=== PATIENT | female | born 1990 | race American Indian/Alaskan Native ===

== ENCOUNTER 2019-06-01 16:49 | Emergency (ER) | payer BC, OTHER ==
--- NOTE | 2019-06-01 20:36 | Event Note ---
ED Screening Note Date of service: 06/01/19 Time: 20:30 ED Screening Note: 28 y o female [employer] employee presents with lower back muscle spasm that is worsening x 5 days pt states no relief with otc meds, wasnt able to go in to work due to worsening pain, no ua sx This initial assessment/diagnostic orders/clinical plan/treatment(s) is/are subject to change based on patients health status, clinical progression and re- assessment by fellow clinical providers in the ED. Further treatment and workup at subsequent clinical providers discretion. Patient/guardian urged not to elope from the ED as their condition may be serious if not clinically assessed and managed. Initial orders include: acc eval
[2019-06-01] MEDS ORDERED: ACETAMINOPHEN 500 MG TAB PO ONE (22:35)
[2019-06-01] MEDS ORDERED: IBUPROFEN 600 MG TAB PO ONE (22:35)
[2019-06-02 00:29] LABS: Bacteria,Urine 1+ /HPF (Negative); Bilirubin,Urine NEG (Negative); Blood,Urine NEG (Negative); Color,Urine Yellow (Yellow); Mucus,Urine 3+ /HPF; Urobilinogen,Urine < 2.0 mg/dL (<2.0)
--- NOTE | 2019-06-02 01:58 | XRay Report ---
LUMBAR SPINE 2 VIEWS INDICATION / CLINICAL INFORMATION: Pain - Injury. COMPARISON: None available. FINDINGS: No significant degenerative change. No fracture, subluxation or other acute abnormality Signer Name: Kevin Groves MD Signed: 06/02/2019 1:53 AM Workstation Name: [id number]
--- NOTE | 2019-06-02 02:40 | Emergency Department Report ---
ED Back Pain/Injury HPI - General Chief Complaint: Back Pain/Injury Stated Complaint: BACK/ABD PAIN Source: patient Limitations: No Limitations - History of Present Illness Initial Comments: Patient is a nulliparous 28-year-old Afro-F[place]ian female with no past medical history who presents to the ED with acute onset persistent severe low back pain after heavy lifting 4 days ago. Patient states that he last 2 days she has no been able to perform any activities range of motion because of severe low back pain. Patient denies dysuria, urinary frequency and urgency, hematuria, abdominal pain, traumatic injury, fall, numbness and tingling or weakness of lower extremities bilaterally, urinary or bowel incontinence, saddle paresthesia, dizziness, chest pain or shortness of breath. MD Complaint: back pain -: Sudden, days(s) (4) Similar Symptoms Previously: Yes Place: home Radiation: none Severity: severe Severity scale (0 -10): 8 Quality: sharp, aching Consistency: constant Improves With: none Worsens With: movement, walking Context: while lifting, turning/twisting, bending Associated Symptoms: denies other symptoms. denies: confusion, weakness, chest pain, numbness, difficulty walking, cough, difficulty urinating, diaphoresis, incontinence, fever/chills, constipation, headaches, abdominal pain, loss of appetite, malaise, nausea/vomiting, rash, seizure, shortness of breath, syncope - Related Data Previous Rx's Medication Instructions Recorded Last Taken Type Cyclobenzaprine [Flexeril] 10 mg PO TID PRN #15 tablet 03/20/16 Unknown Rx Ibuprofen [Motrin] 800 mg PO Q8HR PRN #15 tablet 03/20/16 Unknown Rx Ibuprofen [Motrin] 800 mg PO Q8HR PRN #24 tablet 06/02/19 Unknown Rx methOCARBAMOL [Robaxin TAB] 750 mg PO Q8H PRN #21 tablet 06/02/19 Unknown Rx traMADoL [Ultram] 50 mg PO Q6HR PRN #12 tablet 06/02/19 Unknown Rx Allergies Allergy/AdvReac Type Severity Reaction Status Date / Time mushroom Allergy Swelling Verified 03/20/16 08:38 ED Review of Systems ROS: Stated complaint: BACK/ABD PAIN Other details as noted in HPI Constitutional: denies: chills, fever Eyes: denies: eye pain, eye discharge, vision change ENT: denies: ear pain, throat pain Respiratory: denies: cough, shortness of breath, wheezing Cardiovascular: denies: chest pain, palpitations Endocrine: no symptoms reported Gastrointestinal: denies: abdominal pain, nausea, diarrhea Genitourinary: denies: urgency, dysuria, discharge Musculoskeletal: back pain (lower back pain), arthralgia, myalgia. denies: joint swelling Skin: denies: rash, lesions Neurological: denies: headache, weakness, paresthesias Psychiatric: denies: anxiety, depression Hematological/Lymphatic: denies: easy bleeding, easy bruising ED Past Medical Hx - Past Medical History Previous Medical History?: No - Surgical History Past Surgical History?: No - Social History Smoking Status: Never Smoker Substance Use Type: None - Medications Home Medications: Home Medications Medication Instructions Recorded Confirmed Last Taken Type Cyclobenzaprine [Flexeril] 10 mg PO TID PRN #15 tablet 03/20/16 Unknown Rx Ibuprofen [Motrin] 800 mg PO Q8HR PRN #15 tablet 03/20/16 Unknown Rx Ibuprofen [Motrin] 800 mg PO Q8HR PRN #24 tablet 06/02/19 Unknown Rx methOCARBAMOL [Robaxin TAB] 750 mg PO Q8H PRN #21 tablet 06/02/19 Unknown Rx traMADoL [Ultram] 50 mg PO Q6HR PRN #12 tablet 06/02/19 Unknown Rx ED Physical Exam - General Limitations: No Limitations General appearance: alert, in no apparent distress - Head Head exam: Present: atraumatic, normocephalic, normal inspection - Eye Eye exam: Present: normal appearance, PERRL, EOMI Pupils: Present: normal accommodation - ENT ENT exam: Present: normal exam, normal orophraynx, mucous membranes moist, TM's normal bilaterally, normal external ear exam - Neck Neck exam: Present: normal inspection, full ROM. Absent: tenderness, lymphadenopathy - Respiratory Respiratory exam: Present: normal lung sounds bilaterally. Absent: respiratory distress, wheezes, rhonchi, chest wall tenderness, accessory muscle use, decreased breath sounds, prolonged expiratory - Cardiovascular Cardiovascular Exam: Present: regular rate, normal rhythm, normal heart sounds. Absent: systolic murmur, diastolic murmur, rubs, gallop - GI/Abdominal GI/Abdominal exam: Present: soft, normal bowel sounds. Absent: tenderness, guarding, rebound, hyperactive bowel sounds, hypoactive bowel sounds - Extremities Exam Extremities exam: Present: normal inspection, full ROM. Absent: tenderness, normal capillary refill, pedal edema, joint swelling - Back Exam Back exam: Present: normal inspection, tenderness (palpable lumbosacral paraspinal musculoskeletal tenderness), muscle spasm, paraspinal tenderness. Absent: full ROM (Limited range of motion due to pain) - Neurological Exam Neurological exam: Present: alert, oriented X3, CN II-XII intact, normal gait, reflexes normal - Psychiatric Psychiatric exam: Present: normal affect, normal mood - Skin Skin exam: Present: warm, dry, intact, normal color. Absent: rash ED Course Vital Signs 06/01/19 06/01/19 17:24 23:21 Temperature 98.3 F Pulse Rate 92 H Respiratory 16 20 Rate Blood Pressure 193/107 O2 Sat by Pulse 97 Oximetry ED Medical Decision Making - Radiology Data Radiology results: report reviewed, image reviewed L-spine x-ray shows no acute fractures or subluxations. - Medical Decision Making This is a 28-year-old female who presented to the ED with acute onset persistent severe low back pain after heavy lifting 4 days ago. In the ED, patient is alert and oriented 3 and is not in distress with normal vital signs. Patient however appears to be in significant pain. Patient was treated for pain in the ED and the L-spine x-ray shows no acute fractures or subluxations. On reevaluation, patient's pain is well-controlled with medications. Patient's symptoms are likely due to musculoskeletal spasm or muscle strain from heavy lifting. Patient was discharged home on pain medications and muscle relaxants and was advised to follow-up with her primary care physician in 7-10 days for reevaluation or return to the ED immediately if symptoms get worse. - Differential Diagnosis Muscle spasm; Muscle strain; low back pain Critical care attestation.: If time is entered above; I have spent that time in minutes in the direct care of this critically ill patient, excluding procedure time. ED Disposition Clinical Impression: Spasm of muscle of lower back, Strain of muscle, fascia and tendon of lower back, initial encounter Acute low back pain Qualifiers: Back pain laterality: unspecified Sciatica presence: without sciatica Qualified Code(s): M54.5 - Low back pain Disposition: TO HOME OR SELFCARE Is pt being admited?: No Does the pt Need Aspirin: No Condition: Stable Instructions: Muscle Strain (ED), Muscle Spasm (ED), Acute Low Back Pain (ED) Additional Instructions: Take medication with food, drink plenty of fluids and follow-up with your primary care physician in 7-10 days for reevaluation. Return to the ED immediately if symptoms get worse. Prescriptions: Ibuprofen [Motrin] 800 mg PO Q8HR PRN #24 tablet PRN Reason: Pain , Severe (7-10) methOCARBAMOL [Robaxin TAB] 750 mg PO Q8H PRN #21 tablet PRN Reason: Muscle Spasm traMADoL [Ultram] 50 mg PO Q6HR PRN #12 tablet PRN Reason: Pain Referrals: [facility] [Outside] - 3-5 Days Forms: Work/School Release Form(ED) Time of Disposition: 02:41 Print Language: LAO
[2019-06-02 06:42] VITALS: BP 132/78
== END 2019-06-02 03:30 | disposition home or self-care (01) ==
LOC: ED 16:49
DX: S39.012A Strain of muscle, fascia and tendon of lower back, initial encounter (principal); M62.830 Muscle spasm of back; Z91.018 Allergy to other foods; Z79.899 Other long term (current) drug therapy; X50.0XXA Overexertion from strenuous movement or load, initial encounter; Y93.89 Activity, other specified; Y92.008 Other place in unspecified non-institutional (private) residence as the place of occurrence of the external cause; Y99.8 Other external cause status
CPT/HCPCS: 36415; 72100; 81001; 84703

== ENCOUNTER 2019-06-27 08:50 | Outpatient (CLI) | payer BC ==
[2019-06-27 11:43] LABS: Hepatitis C Virus Antibody Non-Reactive (NonReactive)
== END 2019-06-27 08:51 | disposition home or self-care (01) ==
LOC: LAB 08:50
PROVIDERS: ATTEND Obstetrics & Gynecology
DX: Z11.3 Encounter for screening for infections with a predominantly sexual mode of transmission (principal)
CPT/HCPCS: 36415; 86592; 86689; 86706; 86803

== ENCOUNTER 2019-11-22 12:26 | Day surgery (SDC) | payer BC ==
[2019-11-21 08:48] LABS: Hematocrit 35.7 % (30.3-42.9); Hemoglobin 12.2 gm/dl (10.1-14.3); Mean Corpuscular HGB Conc 34 % (30-34); Mean Corpuscular Volume 83 fl (79-97); Platelet Count 332 K/mm3 (140-440); Red Blood Count 4.28 M/mm3 (3.65-5.03); Red Cell Distribution Width 15.4 % (13.2-15.2)
--- NOTE | 2019-11-21 19:10 | History and Physical Report ---
History of Present Illness Date of examination: 11/16/19 Chief complaint: Excessive and frequent menstruation with irregular cycle and Endometrial polyp History of present illness: Past History : 0 [employer] History Operations: Negative Past Surgical History Abnormal PAP: negative Infection History HIV Risk Eval: no Hx of STD: None Active Medications (reviewed today): SYMONE 0.35 MG ORAL TABLET (NORETHINDRONE) 1 tab po daily AMLODIPINE BESYLATE TABLET (AMLODIPINE BESYLATE TABS) TRAMADOL HCL 50 MG ORAL TABLET (TRAMADOL HCL) 1 po q6hrs prn ROBAXIN-750 TABLET (METHOCARBAMOL TABS) IBUPROFEN 800 MG ORAL TABLET (IBUPROFEN) 1 po (PRN) Current Allergies (reviewed today): * MUSHROOMS (Critical) Past Medical History: Reviewed history from 10/19/2019 and no changes required: Back injury Hypertension Past Surgical History: Reviewed history from 06/10/2019 and no changes required: Negative Past Surgical History Family History Summary: Reviewed history Last on 10/19/2019 and no changes required:11/21/2019 MGM - Has Family History Breast Cancer - - Entered On: 06/14/2019 Other Family Member - Has No Family History of Uterine Cancer - Entered On: 06/14/2019 Other Family Member - Has No Family History of Small Bowel Cancer - Entered On: 06/14/2019 Other Family Member - Has No Family History of Stomach Cancer - Entered On: Other Family Member - Has No Family History of Pancreatic Cancer - Entered On: 06/14/2019 Other Family Member - Has No Family History of Ovarvian Cancer - Entered On: 06/14/2019 Other Family Member - Has No Family History of Kidney/Urinary Tract Cancer - Entered On: 06/14/2019 Other Family Member - Has No Family History of Spontaneous DVT-PE - Entered On: 06/14/2019 Other Family Member - Has No Family History of Colon Cancer - Entered On: 06/14/2019 Other Family Member - Has No Family History of Brain Cancer - Entered On: 06/14/2019 Other Family Member - Has No Family History of Biliary Tract Cancer - Entered On: 06/14/2019 Social History: Reviewed history from 06/10/2019 and no changes required: Patient is single Smoking History: Patient has never smoked. Risk Factors: Smoked Tobacco Use: Never smoker Smokeless Tobacco Use: Never Drug use: no HIV high-risk behavior: no Alcohol use: yes Exercise: no Seatbelt use: 100 % PAP Smear History: Date of Last PAP Smear: 06/10/2019 Previous Tobacco Use: Signed On 10/19/2019 Smoked Tobacco Use: Never smoker Smokeless Tobacco Use: Never Drug use: no HIV high-risk behavior: no Previous Alcohol Use: Signed On 10/19/2019 Alcohol use: yes Drinks per day: social Exercise: no Seatbelt use: 100 % PAP Smear History: Date of Last PAP Smear: 06/10/2019 Physical Exam Appearance: well developed, well nourished, no acute distress Other Exams Lungs: no rales, rhonchi, or wheezes Heart: S1, S2, no murmur, rub, or gallop Genitourinary Exam Uterus: deferred for EUA Impression & Recommendations: Problem # 1: Excessive and frequent menstruation with irregular cycle (ICD- 626.6) (ZFT66-S37.1) Her updated medication list for this problem includes: Symone 0.35 Mg Oral Tablet (Norethindrone) ..... 1 tab po daily Ibuprofen 800 Mg Oral Tablet (Ibuprofen) ..... 1 po (prn) Orders: Ofc Vst Est 18548 ([id number]) Problem # 2: Endometrial polyp (ICD-621.0) (IWS88-P36.0) Diagnosis explained to patient . Questions answered. Discussed with patient various medical and surgical therapies common for treatment: Hormonal/medical therapy,endometrial ablation or hysterectomy. She desires hysteroscopy D&C, she was informed her heavy, irregular bleeding may persist or recur after the procedure. Patient voiced understanding and agrees with plan of care Consent reviewed and signed . Possible laparoscopy or laparotomy explained to patient. The risks and alternatives for this surgery were reviewed with the patient. She was informed of possible bleeding, infection, injury to bowel, bladder, ureters or other adjacent organs. The patient was instructed/informed the following: The normal length of hospital stay for this procedure. Nothing to eat or drink after midnight the evening prior to surgery. Pre-op instruction sheets given. Wound care instructions given. Infection precautions reviewed, patient to call for any signs or symptoms of infection. The usual discomforts associated with this procedure were detailed. Proper use of pain medicines was reviewed. Patient was given ample opportunity to have all her questions answered before signing informed consent. H&P dictated. Her updated medication list for this problem includes: Symone 0.35 Mg Oral Tablet (Norethindrone) ..... 1 tab po daily Tramadol Hcl 50 Mg Oral Tablet (Tramadol hcl) ..... 1 po q6hrs prn Ibuprofen 800 Mg Oral Tablet (Ibuprofen) ..... 1 po (prn) Medications and Allergies Allergies Allergy/AdvReac Type Severity Reaction Status Date / Time mushroom Allergy Hives Verified 11/10/19 15:10 Home Medications Medication Instructions Recorded Confirmed Last Taken Type Norethindrone [Jencycla] 0.35 mg PO DAILY 11/21/19 11/21/19 11/20/19 History amLODIPine 5 mg PO DAILY PRN 11/21/19 11/21/19 Unknown History methOCARBAMOL [Robaxin TAB] 750 mg PO Q8H PRN 11/21/19 11/21/19 Unknown History Active Meds: Active Medications Lactated Ringer's (Lactated Ringers) 1,000 mls @ 100 mls/hr IV DIRECT MARI Stop: 11/22/19 23:59 Cefazolin Sodium (Ancef/Sterile Water 2 Gm/20 Ml) 2 gm in 20 mls @ 80 mls/hr IV PREOP NR; Protocol Midazolam HCl (Versed) 2 mg IV PREOP NR Stop: 11/21/22 23:59 Exam Vital Signs Temp Pulse Resp BP Pulse Ox 98.4 F 90 20 179/110 99 11/21/19 08:10 11/21/19 08:10 11/21/19 08:10 11/21/19 08:10 11/21/19 08:10 Results - Labs 11/21/19 08:20 Abnormal lab results 11/21/19 Range/Units 08:20 RDW 15.4 H (13.2-15.2) % Assessment and Plan - Patient Problems (1) Excessive and frequent menstruation with irregular cycle Status: Acute (2) Endometrium, polyp Status: Acute
--- NOTE | 2019-11-22 07:54 | Anesthesia Consultation ---
Anesthesia Consult and Med Hx Date of service: 11/22/19 - Airway Anesthetic Teeth Evaluation: Good ROM Head & Neck: Adequate Mental/Hyoid Distance: Adequate Mallampati Class: Class III Intubation Access Assessment: Possibly Difficult - Pulmonary Exam CTA: Yes - Cardiac Exam Cardiac Exam: RRR - Pre-Operative Health Status ASA Pre-Surgery Classification: ASA2 Proposed Anesthetic Plan: General - Pulmonary Hx Smoking: No Hx Respiratory Symptoms: No - Cardiovascular System Hx Hypertension: Yes (took amlodipine this morning) - Central Nervous System CVA: No Hx Psychiatric Problems: Yes (anxiety) - Gastrointestinal Hx Gastroesophageal Reflux Disease: No - Endocrine Hx Renal Disease: No Hx Liver Disease: No Hx Insulin Dependent Diabetes: No Hx Non-Insulin Dependent Diabetes: No Hx Thyroid Disease: No - Other Systems Hx Obesity: Yes (BMI 36)
--- NOTE | 2019-11-22 07:55 | Anesthesia Day of Surgery ---
Anesthesia Day of Surgery - Day of Surgery Patient Examined: Yes Patient H&P Reviewed: Yes Patient is NPO: Yes
--- NOTE | 2019-11-22 10:00 | Operative Report ---
Operative Report Operative Report: Date: 11/22/2019 PREOPERATIVE DIAGNOSES: 1. Menometrorrhagia 2. Endometrial polyps POSTOPERATIVE DIAGNOSES: 1. Menometrorrhagia 2. Endometrial polyps PROCEDURE PERFORMED: 1. Cervical dilation 2. Uterine curettage 3. Hysteroscopic resection of endometrial polyps using the MyoSure device ANESTHESIA: General ESTIMATED BLOOD LOSS: Less than minimal cc. INDICATIONS: This is a 29-year-old female that presents abbie metrorrhagia and endometrial polyps. PROCEDURE: The patient was seen in the preoperative suite. Expected procedure and postoperative course discussed with her. She was taken to the operative suite where general anesthesia was performed. She was placed in a dorsal lithotomy position. . A bimanual exam was done, the uterus was found to be difficult to palpate due to body habitus. She was prepped and draped in the normal sterile fashion. Timeout was performed. A nonlatex Arrieta catheter was introduced into her bladder. Clear yellow urine was noted to drain to the Arrieta catheter. The cervix and vagina were grossly normal with no obvious masses or deformities. A bivalve operative speculum was placed in the vagina and the anterior lip of the cervix was grasped with the single-tooth tenaculum. The uterus was sounded to ~8 cm. The cervix was progressively dilated to allow the operative hysteroscope. Under direct visualization, the ostia were within normal limits. The endometrial lining appeared thickened, however, there was no obvious evidence of malignancy. The hysteroscope was removed and a small sharp curette was placed intrauterine very carefully using anterior wall for guidance. Endometrial curettings were obtained. . The endometrial sampling was placed on Telfa pad and sent to Pathology for evaluation, permanent. The MyoSure device was placed into the cavity of the uterus and resection of the polyps was performed. The hysteroscope was introduced again, no evidence of perforation was noted. At this point procedure was ended. The single-tooth tenaculum and speculum were removed. The cervix was found to be hemostatic. Counts were correct. Patient was taken to the PACU stable. The Arrieta catheter was removed. Approximately 200 mL's of clear yellow urine within the Arrieta bag. Distention fluid: Normal saline Deficit: 50 mL
--- NOTE | 2019-11-22 10:07 | Discharge Summary ---
Providers - Providers Date of discharge: 11/22/19 Attending physician: BENITO JAMES Primary care physician: INES GU Hospitalization Condition: Good Procedures: hysteroscopic polypectomy Hospital course: unremarkable Disposition: DC-01 TO HOME OR SELFCARE - Discharge Diagnoses (1) Excessive and frequent menstruation with irregular cycle Status: Resolved (2) Endometrium, polyp Status: Resolved Core Measure Documentation - Palliative Care Palliative Care/ Comfort Measures: Not Applicable - Core Measures Any of the following diagnoses?: none Exam - Constitutional Vitals: Temp Pulse Resp BP Pulse Ox 98.0 F 79 16 140/81 96 11/22/19 10:00 11/22/19 10:00 11/22/19 10:00 11/22/19 10:00 11/22/19 10:00 General appearance: Present: no acute distress - Respiratory Respiratory effort: normal - Cardiovascular Rhythm: regular - Psychiatric Psychiatric: appropriate mood/affect, intact judgment & insight, memory intact, cooperative Plan Activity: other (no sex, no driving today) Weight Bearing Status: Full Weight Bearing Diet: regular (eat small frequent meals today) Special Instructions: no heavy lifting (greater than 25lb) Follow up with: INES GU MD [Primary Care Provider] - 7 Days BENITO JAMES MD [Staff Physician] - (as scheduled) Prescriptions: Ibuprofen [Motrin 800 MG tab] 800 mg PO TID PRN #30 tablet PRN Reason: Pain
[2019-11-22 10:43] VITALS: BP 145/83
[~2019-11-22 12:26] MED LIST: KETOROLAC 30 MG/1 ML INJ IV PRN; KETOROLAC 30 MG/1 ML INJ ONE; LACTATED RINGERS 1,000 ML IV SCH; LIDOCAINE MPF (2%) 20 MG/1 ML VIAL 5 ML ONE; MIDAZOLAM 2 MG/2 ML INJ IV NR; ONDANSETRON 4 MG/2 ML INJ IV PRN; ONDANSETRON 4 MG/2 ML INJ ONE; SODIUM CHLORIDE 0.9% IRRIG SOLN 3000 ML IR ONE; ceFAZolin/Water 2 GM/20 ML 2 GM/20 ML SYRINGE IV NR; dexAMETHasone 20 MG/5 ML VIAL ONE; fentaNYL 100 MCG/2 ML INJ IV PRN; fentaNYL 100 MCG/2 ML INJ ONE; propofoL 200 MG/20 ML VIAL IV ONE
--- NOTE | 2019-11-22 12:58 | Post Anesthesia Evaluation ---
- Post Anesthesia Evaluation Patient Participated: Yes Airway Patent: Yes Stable Respiratory Function: Yes Nausea/Vomiting: No Temp > 96.8F: Yes Pain Manageable: Yes Adequeate Hydration: Yes Anesthesia Complications: No
== END 2019-11-22 12:27 | disposition home or self-care (01) ==
LOC: OR 12:26
PROVIDERS: ATTEND Obstetrics & Gynecology
DX: N92.1 Excessive and frequent menstruation with irregular cycle (principal); N84.0 Polyp of corpus uteri; I10 Essential (primary) hypertension; E66.9 Obesity, unspecified; Z11.59 Encounter for screening for other viral diseases; Z91.040 Latex allergy status; Z79.899 Other long term (current) drug therapy; Z98.890 Other specified postprocedural states; Z68.36 Body mass index [BMI] 36.0-36.9, adult; Z88.8 Allergy status to other drugs, medicaments and biological substances
CPT/HCPCS: 36415; 58558; 81025; 85027; 88305; A4217; C1782; J0690; J1100; J1885; J2250; J2405; J2704; J3010; J7120; U0003

== ENCOUNTER 2020-01-24 11:50 | Emergency (ER) | payer BC ==
[2020-01-24 12:17] VITALS: BP 168/99
--- NOTE | 2020-01-24 13:09 | XRay Report ---
RIGHT FEMUR 4 VIEW(S) INDICATION / CLINICAL INFORMATION: r/o glass foreign body from wound COMPARISON: None available. FINDINGS: BONES / JOINT(S): No acute fracture or subluxation. No significant arthritis. Benign-appearing sclero tic lesion within the distal femoral metaphysis compatible with an enchondroma. SOFT TISSUES: No significant abnormality. No evidence of foreign body. ADDITIONAL FINDINGS: None. IMPRESSION: 1. No evidence of foreign body. 2. No acute osseous abnormality. 3. Sclerotic lesion in the distal femoral metaphysis is compatible with a benign enchondroma. Signer Name: Raji Caal MD Signed: 01/24/2020 1:05 PM Workstation Name: [id number]
--- NOTE | 2020-01-24 13:27 | Emergency Department Report ---
- General Chief Complaint: Wound/Laceration Stated Complaint: RIGHT THIGH CUT Source: patient Mode of arrival: Ambulatory Limitations: No Limitations - History of Present Illness Initial Comments: This is a very pleasant 29-year-old female presents emerged department chief complaint of a laceration to her right upper thigh on the lateral side that occurred 3 days ago. Patient reports she was cleaning a glass vase when it broke and accidentally cut her leg. She is concerned there may be a piece of glass in the wound. She reports her last tetanus shot is up-to-date. She denies any associated fever, chills, night sweats, headache, dizziness, blurry vision, nausea, vomiting, diarrhea, chest pain, shortness of breath. - Related Data Home Medications Medication Instructions Recorded Confirmed Last Taken Norethindrone [Jencycla] 0.35 mg PO DAILY 11/21/19 11/21/19 11/20/19 amLODIPine 5 mg PO DAILY PRN 11/21/19 11/22/19 11/22/19 06:00 methOCARBAMOL [Robaxin TAB] 750 mg PO Q8H PRN 11/21/19 11/21/19 Unknown Previous Rx's Medication Instructions Recorded Last Taken Type Ibuprofen [Motrin 800 MG tab] 800 mg PO TID PRN #30 tablet 11/22/19 Unknown Rx cephALEXin [Keflex] 500 mg PO Q6HR #40 capsule 01/24/20 Unknown Rx Allergies Allergy/AdvReac Type Severity Reaction Status Date / Time mushroom Allergy Hives Verified 11/10/19 15:10 latex AdvReac Rash Verified 11/22/19 07:37 ED Review of Systems ROS: Stated complaint: RIGHT THIGH CUT Other details as noted in HPI Comment: All other systems reviewed and negative Constitutional: denies: chills, fever Eyes: denies: eye pain, eye discharge, vision change ENT: denies: ear pain, throat pain Respiratory: denies: cough, shortness of breath, wheezing Cardiovascular: denies: chest pain, palpitations Endocrine: no symptoms reported Gastrointestinal: denies: abdominal pain, nausea, diarrhea Genitourinary: denies: urgency, dysuria, discharge Musculoskeletal: denies: back pain, joint swelling, arthralgia Skin: as per HPI, other (Wound). denies: rash, lesions Neurological: denies: headache, weakness, paresthesias Psychiatric: denies: anxiety, depression Hematological/Lymphatic: denies: easy bleeding, easy bruising ED Past Medical Hx - Past Medical History Hx Hypertension: Yes (Past hx) Additional medical history: anxiety - Surgical History Past Surgical History?: No - Social History Smoking Status: Never Smoker - Medications Home Medications: Home Medications Medication Instructions Recorded Confirmed Last Taken Type Norethindrone [Jencycla] 0.35 mg PO DAILY 11/21/19 11/21/19 11/20/19 History amLODIPine 5 mg PO DAILY PRN 11/21/19 11/22/19 11/22/19 06:00 History methOCARBAMOL [Robaxin TAB] 750 mg PO Q8H PRN 11/21/19 11/21/19 Unknown History Ibuprofen [Motrin 800 MG tab] 800 mg PO TID PRN #30 tablet 11/22/19 Unknown Rx cephALEXin [Keflex] 500 mg PO Q6HR #40 capsule 01/24/20 Unknown Rx ED Physical Exam - General Limitations: No Limitations General appearance: alert, in no apparent distress - Head Head exam: Present: atraumatic, normocephalic - Eye Eye exam: Present: normal appearance, PERRL, EOMI Pupils: Present: normal accommodation - ENT ENT exam: Present: normal exam, normal orophraynx, mucous membranes moist - Neck Neck exam: Present: normal inspection, full ROM. Absent: tenderness, meningismus - Respiratory Respiratory exam: Present: normal lung sounds bilaterally. Absent: respiratory distress, wheezes, rales, rhonchi, stridor - Cardiovascular Cardiovascular Exam: Present: regular rate, normal rhythm, normal heart sounds. Absent: systolic murmur, diastolic murmur, rubs, gallop - GI/Abdominal GI/Abdominal exam: Present: soft, normal bowel sounds. Absent: distended, tenderness, guarding, rebound, rigid - Extremities Exam Extremities exam: Present: normal inspection, full ROM, tenderness (Mild tenderness to the lateral right thigh with a 3 cm superficial laceration. No erythema, edema or drainage.) - Back Exam Back exam: Present: normal inspection, full ROM. Absent: tenderness, CVA tenderness (L) - Neurological Exam Neurological exam: Present: alert, oriented X3, normal gait - Psychiatric Psychiatric exam: Present: normal affect, normal mood - Skin Skin exam: Present: warm, dry, intact, normal color. Absent: rash ED Course Vital Signs 01/24/20 12:14 Temperature 98.2 F Pulse Rate 98 H Respiratory 18 Rate Blood Pressure 168/99 O2 Sat by Pulse 99 Oximetry ED Medical Decision Making - Radiology Data Radiology results: report reviewed XRay Report Signed Patient: FARRUKH CLANCY MR# : [id number] : 1990 Acct:[id number] Age/Sex: 29 / F ADM Date: 01/24/20 Loc: ED Attending Dr: Ordering Physician: JODY JOSÉ Date of Service: 01/24/20 Procedure(s): XR femur 2+V RT Accession Number(s): [id number] cc: JODY JOSÉ Fluoro Time In Minutes: RIGHT FEMUR 4 VIEW(S) INDICATION / CLINICAL INFORMATION: r/o glass foreign body from wound COMPARISON: None available. FINDINGS: BONES / JOINT(S): No acute fracture or subluxation. No significant arthritis. Benign-appearing sclerotic lesion within the distal femoral metaphysis compatible with an enchondroma. SOFT TISSUES: No significant abnormality. No evidence of foreign body. ADDITIONAL FINDINGS: None. IMPRESSION: 1. No evidence of foreign body. 2. No acute osseous abnormality. 3. Sclerotic lesion in the distal femoral metaphysis is compatible with a benign enchondroma. Signer Name: Jillian Caal MD Signed: 01/24/2020 1:05 PM Workstation Name: [id number] Transcribed By: Dictated By: JILLIAN CAAL Electronically Authenticated By: JILLIAN CAAL Signed Date/Time: 01/24/20 1305 - Medical Decision Making Patient nontoxic in no acute distress. X-ray does not show any appreciable foreign bodies. There was an incidental finding of a benign endochondroma. Patient denies any symptoms. Recommended outpatient orthopedic follow-up as needed. Patient had no clinical symptoms of infection but due to the laceration occurring 3 days ago and the symptoms we will treat her with Keflex and recommended warm compresses. - Differential Diagnosis laceration, abrasion, burn Critical care attestation.: If time is entered above; I have spent that time in minutes in the direct care of this critically ill patient, excluding procedure time. ED Disposition Clinical Impression: Laceration of leg Qualifiers: Encounter type: initial encounter Laterality: right Qualified Code(s): S81.811A - Laceration without foreign body, right lower leg, initial encounter Disposition: - TO HOME OR SELFCARE Is pt being admited?: No Condition: Stable Instructions: Laceration (ED) Prescriptions: cephALEXin [Keflex] 500 mg PO Q6HR #40 capsule Referrals: INES GU MD [Primary Care Provider] - 3-5 Days Time of Disposition: 13:26
== END 2020-01-24 13:32 | disposition home or self-care (01) ==
LOC: ED 11:50
DX: S81.811A Laceration without foreign body, right lower leg, initial encounter (principal); I10 Essential (primary) hypertension; F41.9 Anxiety disorder, unspecified; Z91.040 Latex allergy status; Z91.018 Allergy to other foods; Z79.899 Other long term (current) drug therapy; W25.XXXA Contact with sharp glass, initial encounter; Y93.E9 Activity, other interior property and clothing maintenance; Y92.89 Other specified places as the place of occurrence of the external cause; Y99.8 Other external cause status
CPT/HCPCS: 99283

== ENCOUNTER 2020-04-18 08:15 | Emergency (ER) | payer BC ==
[2020-04-18 08:43] VITALS: BP 143/80
[2020-04-18] MEDS ORDERED: BENZONATATE 100 MG CAP PO ONE (12:26)
[2020-04-18 12:43] LABS: Basophils % (Auto) 0.3 % (0.0-1.8); Eosinophils % (Auto) 0.1 % (0.0-4.3); Hematocrit 36.6 % (30.3-42.9); Lymphocytes # (Auto) 1.3 K/mm3 (1.2-5.4); Lymphocytes % (Auto) 32.8 % (13.4-35.0); Mean Corpuscular HGB Conc 33 % (30-34); Mean Corpuscular Volume 82 fl (79-97); Monocytes # (Auto) 0.4 K/mm3 (0.0-0.8); Platelet Count 201 K/mm3 (140-440); Red Blood Count 4.47 M/mm3 (3.65-5.03); Red Cell Distribution Width 14.6 % (13.2-15.2)
[2020-04-18 12:51] LABS: Alanine Aminotransferase 25 units/L (7-56); Albumin 3.7 g/dL (3.9-5); BUN/Creatinine Ratio 8; Blood Urea Nitrogen 5 mg/dL (7-17); Calcium 9.1 mg/dL (8.4-10.2); Hemolysis Index 16
--- NOTE | 2020-04-18 14:37 | XRay Report ---
CHEST 2 VIEWS INDICATION / CLINICAL INFORMATION: CHEST PAIN. COMPARISON: 09/21/2019 FINDINGS: SUPPORT DEVICES: None. HEART / MEDIASTINUM: Cardiac silhouette is upper limits of normal in size LUNGS / PLEURA: There are patchy airspace opacities in the mid and lower lung zones No pneumothorax. ADDITIONAL FINDINGS: No significant additional findings. IMPRESSION: 1. There are patchy airspace opacities in the mid and lower lung zones which could represent atypical pneumonia or edema. Signer Name: Carlos Carlos MD Signed: 04/18/2020 2:36 PM Workstation Name: [id number]
[2020-04-18 14:45] LABS: INR 1.01 (0.87-1.13)
[2020-04-18 14:46] LABS: Partial Thromboplastin Time 31.7 Sec. (24.2-36.6)
[2020-04-18] MEDS ORDERED: cefTRIAXone/NS 1 GM/50 ML 1 GM/50 ML BAG IV ONE (14:46)
[2020-04-18] MEDS ORDERED: AZITHROMYCIN 250 MG TAB PO ONE (14:47)
--- NOTE | 2020-04-18 14:52 | Emergency Department Report ---
ED Chest Pain HPI - General Chief Complaint: Chest Pain Stated Complaint: CHEST PAIN AND SOB Time Seen by Provider: 04/18/20 11:54 Source: patient Mode of arrival: Ambulatory Limitations: No Limitations - History of Present Illness Initial Comments: This is a 29-year-old female nontoxic, well nourished in appearance, no acute signs of distress presents to the ED with c/o of productive cough, subjective fever, chills, body aches, rhinorrhea, chest pains, SOB, nasal congestion x1 week. Patient describes productive cough as yellow mucus production. Patient denies any sick contacts. Patient stated has chest pains only when coughing, otherwise denies any chest pains. Patient denies any recent travels, long car, recent hospital stays. Patient denies any calf pain or calf tenderness. Patient denies pleuritic chest pain. Patient denies any chest pain, nausea, vomiting, hemoptysis, numbness, tingling, headache or stiff neck. MD Complaint: chest pain, other (URI symptoms) -: week(s) Onset: other (cough) Pain Location: substernal Pain Radiation: none Severity scale (0 -10): 0 Quality: aching Consistency: intermittent Improves With: rest Worsens With: other (coughing) re: denies: nausea, vomting, diaphoresis, dyspnea, sense of impending doom Other Symptoms: cough. denies: fever, syncope, rash, acid taste in mouth, leg swelling, palpitations, burping Treatments Prior to Arrival: none Aspirin use within the Past 7 Days: (0) No - Related Data On Oral Contraceptives: No Home Medications Medication Instructions Recorded Confirmed Last Taken Norethindrone [Jencycla] 0.35 mg PO DAILY 11/21/19 11/21/19 11/20/19 amLODIPine 5 mg PO DAILY PRN 11/21/19 11/22/19 11/22/19 06:00 methOCARBAMOL [Robaxin TAB] 750 mg PO Q8H PRN 11/21/19 11/21/19 Unknown Previous Rx's Medication Instructions Recorded Last Taken Type Ibuprofen [Motrin 800 MG tab] 800 mg PO TID PRN #30 tablet 11/22/19 Unknown Rx cephALEXin [Keflex] 500 mg PO Q6HR #40 capsule 01/24/20 Unknown Rx Acetaminophen [Acetaminophen 8 650 mg PO Q8H PRN #12 tablet.er 04/18/20 Unknown Rx Hour] Azithromycin [Zithromax Z-GOYO] 250 mg PO DAILY #6 tablet 04/18/20 Unknown Rx Benzonatate [Tessalon Perles] 100 mg PO Q12H PRN #12 capsule 04/18/20 Unknown Rx Allergies Allergy/AdvReac Type Severity Reaction Status Date / Time mushroom Allergy Hives Verified 04/18/20 08:24 latex AdvReac Rash Verified 04/18/20 08:24 Heart Score - HEART Score History: Slightly suspicious EKG: Normal Age: < 45 Risk factors: No known risk factors Troponin: < normal limit HEART Score: 0 ED Review of Systems ROS: Stated complaint: CHEST PAIN AND SOB Other details as noted in HPI Comment: All other systems reviewed and negative Constitutional: chills, fever Eyes: denies: eye pain, eye discharge, vision change ENT: congestion. denies: ear pain, throat pain Respiratory: cough, shortness of breath. denies: wheezing Cardiovascular: chest pain. denies: palpitations Endocrine: no symptoms reported Gastrointestinal: denies: abdominal pain, nausea, diarrhea Genitourinary: denies: urgency, dysuria, discharge Musculoskeletal: denies: back pain, joint swelling, arthralgia Skin: denies: rash, lesions Neurological: denies: headache, weakness, paresthesias Psychiatric: denies: anxiety, depression Hematological/Lymphatic: denies: easy bleeding, easy bruising ED Past Medical Hx - Past Medical History Hx Hypertension: Yes (Past hx) Hx Liver Disease: No Hx Renal Disease: No Additional medical history: anxiety - Surgical History Past Surgical History?: No - Social History Smoking Status: Never Smoker Substance Use Type: None - Medications Home Medications: Home Medications Medication Instructions Recorded Confirmed Last Taken Type Norethindrone [Jencycla] 0.35 mg PO DAILY 11/21/19 11/21/19 11/20/19 History amLODIPine 5 mg PO DAILY PRN 11/21/19 11/22/19 11/22/19 06:00 History methOCARBAMOL [Robaxin TAB] 750 mg PO Q8H PRN 11/21/19 11/21/19 Unknown History Ibuprofen [Motrin 800 MG tab] 800 mg PO TID PRN #30 tablet 11/22/19 Unknown Rx cephALEXin [Keflex] 500 mg PO Q6HR #40 capsule 01/24/20 Unknown Rx Acetaminophen [Acetaminophen 8 650 mg PO Q8H PRN #12 tablet.er 04/18/20 Unknown Rx Hour] Azithromycin [Zithromax Z-GOYO] 250 mg PO DAILY #6 tablet 04/18/20 Unknown Rx Benzonatate [Tessalon Perles] 100 mg PO Q12H PRN #12 capsule 04/18/20 Unknown Rx ED Physical Exam - General Limitations: No Limitations General appearance: alert, in no apparent distress - Head Head exam: Present: atraumatic, normocephalic - Eye Eye exam: Present: normal appearance - Neck Neck exam: Present: normal inspection, full ROM. Absent: tenderness, meningismus, lymphadenopathy - Respiratory Respiratory exam: Present: normal lung sounds bilaterally. Absent: respiratory distress, wheezes, rales, rhonchi, stridor, chest wall tenderness, accessory muscle use, decreased breath sounds, prolonged expiratory - Cardiovascular Cardiovascular Exam: Present: regular rate, normal rhythm, normal heart sounds. Absent: irregular rhythm, systolic murmur, diastolic murmur, rubs, gallop - GI/Abdominal GI/Abdominal exam: Present: soft, normal bowel sounds. Absent: distended, tenderness, guarding, rebound, rigid, diminished bowel sounds - Extremities Exam Extremities exam: Present: normal inspection, full ROM, normal capillary refill. Absent: tenderness - Back Exam Back exam: Present: normal inspection, full ROM. Absent: tenderness, CVA tenderness (R), CVA tenderness (L), muscle spasm, paraspinal tenderness, vertebral tenderness, rash noted - Neurological Exam Neurological exam: Present: alert, oriented X3, normal gait - Psychiatric Psychiatric exam: Present: normal affect, normal mood - Skin Skin exam: Present: warm, dry, intact, normal color. Absent: rash ED Course Vital Signs 04/18/20 08:40 Temperature 98 F Pulse Rate 98 H Respiratory 18 Rate Blood Pressure 143/80 [Right] O2 Sat by Pulse 96 Oximetry - Reevaluation(s) Reevaluation #1: 04/18/20 15:06 Patient is speaking in full sentences with no signs of distress noted. MELLO score - Mello Score Age > 65: (0) No Aspirin use within the Past 7 Days: (0) No 3 or more CAD Risk Factors: (0) No 2 or more Angina events in past 24 hrs: (0) No Known CAD with more than 50% Stenosis: (0) No Elevated Cardiac Markers: (0) No ST Deviation Greater than 0.5mm: (0) No MELLO Score: 0 ED Medical Decision Making - Lab Data Result diagrams: 04/18/20 11:33 04/18/20 11:33 Lab Results 04/18/20 04/18/20 04/18/20 Range/Units 11:33 11:33 11:33 WBC 3.9 L (4.5-11.0) K/mm3 RBC 4.47 (3.65-5.03) M/mm3 Hgb 12.0 (10.1-14.3) gm/dl Hct 36.6 (30.3-42.9) % MCV 82 (79-97) fl MCH 27 L (28-32) pg MCHC 33 (30-34) % RDW 14.6 (13.2-15.2) % Plt Count 201 (140-440) K/mm3 Lymph % (Auto) 32.8 (13.4-35.0) % Holt % (Auto) 10.0 H (0.0-7.3) % Eos % (Auto) 0.1 (0.0-4.3) % Baso % (Auto) 0.3 (0.0-1.8) % Lymph # (Auto) 1.3 (1.2-5.4) K/mm3 Holt # (Auto) 0.4 (0.0-0.8) K/mm3 Eos # (Auto) 0.0 (0.0-0.4) K/mm3 Baso # (Auto) 0.0 (0.0-0.1) K/mm3 Seg Neutrophils % 56.8 (40.0-70.0) % Seg Neutrophils # 2.2 (1.8-7.7) K/mm3 PT (12.2-14.9) Sec. INR (0.87-1.13) APTT (24.2-36.6) Sec. Sodium 137 (137-145) mmol/L Potassium 4.0 (3.6-5.0) mmol/L Chloride 102.5 (98-107) mmol/L Carbon Dioxide 22 (22-30) mmol/L Anion Gap 17 mmol/L BUN 5 L (7-17) mg/dL Creatinine 0.6 (0.6-1.2) mg/dL Estimated GFR > 60 ml/min BUN/Creatinine Ratio 8 % Glucose 87 (65-100) mg/dL Calcium 9.1 (8.4-10.2) mg/dL Total Bilirubin 0.30 (0.1-1.2) mg/dL AST 27 (5-40) units/L ALT 25 (7-56) units/L Alkaline Phosphatase 59 (35-129) units/L Troponin T < 0.010 (0.00-0.029) ng/mL Total Protein 8.2 (6.3-8.2) g/dL Albumin 3.7 L (3.9-5) g/dL Albumin/Globulin Ratio 0.8 % HCG, Qual Negative (Negative) Urine Bilirubin (Negative) Urine RBC (Auto) (0.0-6.0) /HPF U Epithel Cells (Auto) (0-13.0) /HPF 04/18/20 04/18/20 04/18/20 Range/Units 13:42 13:42 14:40 WBC (4.5-11.0) K/mm3 RBC (3.65-5.03) M/mm3 Hgb (10.1-14.3) gm/dl Hct (30.3-42.9) % MCV (79-97) fl MCH (28-32) pg MCHC (30-34) % RDW (13.2-15.2) % Plt Count (140-440) K/mm3 Lymph % (Auto) (13.4-35.0) % Holt % (Auto) (0.0-7.3) % Eos % (Auto) (0.0-4.3) % Baso % (Auto) (0.0-1.8) % Lymph # (Auto) (1.2-5.4) K/mm3 Holt # (Auto) (0.0-0.8) K/mm3 Eos # (Auto) (0.0-0.4) K/mm3 Baso # (Auto) (0.0-0.1) K/mm3 Seg Neutrophils % (40.0-70.0) % Seg Neutrophils # (1.8-7.7) K/mm3 PT 13.4 (12.2-14.9) Sec. INR 1.01 (0.87-1.13) APTT 31.7 (24.2-36.6) Sec. Sodium (137-145) mmol/L Potassium (3.6-5.0) mmol/L Chloride (98-107) mmol/L Carbon Dioxide (22-30) mmol/L Anion Gap mmol/L BUN (7-17) mg/dL Creatinine (0.6-1.2) mg/dL Estimated GFR ml/min BUN/Creatinine Ratio % Glucose (65-100) mg/dL Calcium (8.4-10.2) mg/dL Total Bilirubin (0.1-1.2) mg/dL AST (5-40) units/L ALT (7-56) units/L Alkaline Phosphatase (35-129) units/L Troponin T < 0.010 (0.00-0.029) ng/mL Total Protein (6.3-8.2) g/dL Albumin (3.9-5) g/dL Albumin/Globulin Ratio % HCG, Qual (Negative) Urine Bilirubin Neg (Negative) Urine RBC (Auto) 16.0 (0.0-6.0) /HPF U Epithel Cells (Auto) 1.0 (0-13.0) /HPF Lab Results 04/18/20 04/18/20 04/18/20 Range/Units 11:33 11:33 11:33 WBC 3.9 L (4.5-11.0) K/mm3 RBC 4.47 (3.65-5.03) M/mm3 Hgb 12.0 (10.1-14.3) gm/dl Hct 36.6 (30.3-42.9) % MCV 82 (79-97) fl MCH 27 L (28-32) pg MCHC 33 (30-34) % RDW 14.6 (13.2-15.2) % Plt Count 201 (140-440) K/mm3 Lymph % (Auto) 32.8 (13.4-35.0) % Holt % (Auto) 10.0 H (0.0-7.3) % Eos % (Auto) 0.1 (0.0-4.3) % Baso % (Auto) 0.3 (0.0-1.8) % Lymph # (Auto) 1.3 (1.2-5.4) K/mm3 Holt # (Auto) 0.4 (0.0-0.8) K/mm3 Eos # (Auto) 0.0 (0.0-0.4) K/mm3 Baso # (Auto) 0.0 (0.0-0.1) K/mm3 Seg Neutrophils % 56.8 (40.0-70.0) % Seg Neutrophils # 2.2 (1.8-7.7) K/mm3 PT (12.2-14.9) Sec. INR (0.87-1.13) APTT (24.2-36.6) Sec. Sodium 137 (137-145) mmol/L Potassium 4.0 (3.6-5.0) mmol/L Chloride 102.5 (98-107) mmol/L Carbon Dioxide 22 (22-30) mmol/L Anion Gap 17 mmol/L BUN 5 L (7-17) mg/dL Creatinine 0.6 (0.6-1.2) mg/dL Estimated GFR > 60 ml/min BUN/Creatinine Ratio 8 % Glucose 87 (65-100) mg/dL Calcium 9.1 (8.4-10.2) mg/dL Total Bilirubin 0.30 (0.1-1.2) mg/dL AST 27 (5-40) units/L ALT 25 (7-56) units/L Alkaline Phosphatase 59 (35-129) units/L Troponin T < 0.010 (0.00-0.029) ng/mL Total Protein 8.2 (6.3-8.2) g/dL Albumin 3.7 L (3.9-5) g/dL Albumin/Globulin Ratio 0.8 % HCG, Qual Negative (Negative) Urine Color (Yellow) Urine Turbidity (Clear) Urine pH (5.0-7.0) Ur Specific Marland (1.003-1.030) Urine Protein (Negative) mg/dL Urine Glucose (UA) (Negative) mg/dL Urine Ketones (Negative) mg/dL Urine Blood (Negative) Urine Nitrite (Negative) Urine Bilirubin (Negative) Urine Urobilinogen (<2.0) mg/dL Ur Leukocyte Esterase (Negative) Urine WBC (Auto) (0.0-6.0) /HPF Urine RBC (Auto) (0.0-6.0) /HPF U Epithel Cells (Auto) (0-13.0) /HPF Urine Bacteria (Auto) (Negative) /HPF Urine Mucus /HPF 04/18/20 04/18/20 04/18/20 Range/Units 13:42 13:42 14:40 WBC (4.5-11.0) K/mm3 RBC (3.65-5.03) M/mm3 Hgb (10.1-14.3) gm/dl Hct (30.3-42.9) % MCV (79-97) fl MCH (28-32) pg MCHC (30-34) % RDW (13.2-15.2) % Plt Count (140-440) K/mm3 Lymph % (Auto) (13.4-35.0) % Holt % (Auto) (0.0-7.3) % Eos % (Auto) (0.0-4.3) % Baso % (Auto) (0.0-1.8) % Lymph # (Auto) (1.2-5.4) K/mm3 Holt # (Auto) (0.0-0.8) K/mm3 Eos # (Auto) (0.0-0.4) K/mm3 Baso # (Auto) (0.0-0.1) K/mm3 Seg Neutrophils % (40.0-70.0) % Seg Neutrophils # (1.8-7.7) K/mm3 PT 13.4 (12.2-14.9) Sec. INR 1.01 (0.87-1.13) APTT 31.7 (24.2-36.6) Sec. Sodium (137-145) mmol/L Potassium (3.6-5.0) mmol/L Chloride (98-107) mmol/L Carbon Dioxide (22-30) mmol/L Anion Gap mmol/L BUN (7-17) mg/dL Creatinine (0.6-1.2) mg/dL Estimated GFR ml/min BUN/Creatinine Ratio % Glucose (65-100) mg/dL Calcium (8.4-10.2) mg/dL Total Bilirubin (0.1-1.2) mg/dL AST (5-40) units/L ALT (7-56) units/L Alkaline Phosphatase (35-129) units/L Troponin T < 0.010 (0.00-0.029) ng/mL Total Protein (6.3-8.2) g/dL Albumin (3.9-5) g/dL Albumin/Globulin Ratio % HCG, Qual (Negative) Urine Color Straw (Yellow) Urine Turbidity Clear (Clear) Urine pH 7.0 (5.0-7.0) Ur Specific Marland 1.004 (1.003-1.030) Urine Protein <15 mg/dl (Negative) mg/dL Urine Glucose (UA) Neg (Negative) mg/dL Urine Ketones Neg (Negative) mg/dL Urine Blood Lg (Negative) Urine Nitrite Neg (Negative) Urine Bilirubin Neg (Negative) Urine Urobilinogen < 2.0 (<2.0) mg/dL Ur Leukocyte Esterase Neg (Negative) Urine WBC (Auto) 1.0 (0.0-6.0) /HPF Urine RBC (Auto) 16.0 (0.0-6.0) /HPF U Epithel Cells (Auto) 1.0 (0-13.0) /HPF Urine Bacteria (Auto) 1+ (Negative) /HPF Urine Mucus Few /HPF - EKG Data 04/18/20 15:07 EKG normal sinus rhythm at [address] or T wave abnormalities. Reviewed and signed by . - Radiology Data Referring Physician: JODY JOSÉ Patient Name: FARRUKH CLANCY Date of : 1990 Sex: Female Report Date: 2020-04-18 Report Status: Finalized [address] [address] XRay Report Signed Patient: FARRUKH CLANCY MR# : [id number] : 1990 Acct:[id number] Age/Sex: 29 / F ADM Date: 04/18/20 Loc: ED Attending Dr: Ordering Physician: JODY JOSÉ Date of Service: 04/18/20 Procedure(s): XR chest routine 2V Accession Number(s): [id number] cc: JODY JOSÉ Fluoro Time In Minutes: CHEST 2 VIEWS INDICATION / CLINICAL INFORMATION: CHEST PAIN. COMPARISON: 09/21/2019 FINDINGS: SUPPORT DEVICES: None. HEART / MEDIASTINUM: Cardiac silhouette is upper limits of normal in size LUNGS / PLEURA: There are patchy airspace opacities in the mid and lower lung zones No pneumothorax. ADDITIONAL FINDINGS: No significant additional findings. IMPRESSION: 1. There are patchy airspace opacities in the mid and lower lung zones which could represent atypical pneumonia or edema. Signer Name: Carlos Carlos MD Signed: 04/18/2020 2:36 PM Workstation Name: [id number] Transcribed By: SS Dictated By: Carlos Carlos MD Electronically Authenticated By: Carlos Carlos MD Signed Date/Time: 04/18/201435 DD/ 34 TD/TT: - Medical Decision Making This is a 29-year-old female that presents with PNA with suspected COVID. Patient is stable and was examined by me. MELLO and HEART score 0 pints. PERC score for DVT/SVT/PE 0 points. EKG normal sinus rhythm with no significant changes in ST. Chest xray dictated by the radiologist. PAtient is notified of the Xray report with no questions noted. Labs within normal limits. Negative troponin x2. Patient received treatment in the ED which stated symptoms are i mproving subsided. Patient does meet clinical concerns of COVID-19 and was instructed and educated on signs and symptoms and to self quarantine and seek medical attention as soon as possible if symptoms worsen and continue. Patient received Rocephin and Azith in the ED. Will dc with Zpak. Patient was instructed to increase hydration, rest and take Tylenol for fever episodes. Vitals stable. Patient is nonfebrile and normal heart rate. Patient was instructed to Follow-up with a primary care/system administration manager doctor in 2 days or if symptoms worsen and continue return to emergency room as soon as possible. At time of discharge, the patient does not seem toxic or ill in appearance. No acute signs of distress noted. Patient agrees to discharge treatment plan of care. No further questions noted by the patient. Critical care attestation.: If time is entered above; I have spent that time in minutes in the direct care of this critically ill patient, excluding procedure time. ED Disposition Clinical Impression: Suspected COVID-19 virus infection PNA (pneumonia) Qualifiers: Pneumonia type: due to unspecified organism Laterality: unspecified laterality Lung location: lower lobe of lung Qualified Code(s): J18.9 - Pneumonia, unspecified organism Disposition: DC-01 TO HOME OR SELFCARE Is pt being admited?: No Does the pt Need Aspirin: No Condition: Stable Instructions: COVID-19 Frequently Asked Questions, COVID-19, COVID-19: How to Protect Yourself and Others - CDC, Pneumonitis, Bacterial Pneumonia (ED) Additional Instructions: Follow-up with a primary care doctor in 3-5 days or if symptoms worsen and continue return to emergency room as soon as possible. As educated and instructed to you must self quarantine yourself and people that you have been in close contact with similar symptoms for the next 14 days. Please see your nearest health department or primary care doctor that you are referred to for COVID testing. Increased rest, hydration, and take Tylenol as prescribed for fever episode. Prescriptions: Acetaminophen [Acetaminophen 8 Hour] 650 mg PO Q8H PRN #12 tablet.er PRN Reason: Pain , Severe (7-10) Benzonatate [Tessalon Perles] 100 mg PO Q12H PRN #12 capsule PRN Reason: Cough Azithromycin [Zithromax Z-GOYO] 250 mg PO DAILY #6 tablet Referrals: PRIMARY CAREMD [Primary Care Provider] - 3-5 Days LUIS BILLINGS MD [Staff Physician] - 3-5 Days Forms: Work/School Release Form(ED) Time of Disposition: 15:21
[2020-04-18 14:58] LABS: Bacteria,Urine 1+ /HPF (Negative); Bilirubin,Urine NEG (Negative); Blood,Urine LG (Negative); Color,Urine Straw (Yellow); Mucus,Urine FEW /HPF; Protein,Urine <15 mg/dL mg/dL (Negative); Urobilinogen,Urine < 2.0 mg/dL (<2.0)
== END 2020-04-18 16:10 | disposition home or self-care (01) ==
LOC: ED 08:15
DX: J18.9 Pneumonia, unspecified organism (principal); F41.9 Anxiety disorder, unspecified; I10 Essential (primary) hypertension; Z79.899 Other long term (current) drug therapy; Z91.040 Latex allergy status; Z91.018 Allergy to other foods; Z20.828 Contact with and (suspected) exposure to other viral communicable diseases
CPT/HCPCS: 36415; 71046; 80053; 81001; 84484; 84703; 85025; 85610; 85730; 93005; 96365; 99284; J0696

== ENCOUNTER 2020-06-20 09:36 | Outpatient (CLI) | payer BC ==
--- NOTE | 2020-06-20 12:37 | Ultrasound Report ---
ULTRASOUND PELVIS COMPLETE ULTRASOUND TRANSVAGINAL INDICATION / CLINICAL INFORMATION: ABNORMAL VAGINAL BLEEDING. TECHNIQUE: Transabdominal and Transvaginal. Duplex Color Doppler used: Yes. COMPARISON: None available FINDINGS: UTERUS: Anteverted - Appearance (if present): No significant abnormality. - Size in cm (if present): 6.5 x 3.1 x 3.9. - Endometrial Complex (if present): No significant abnormality.. Thickness in cm (if measured) = 0.4 - Mass lesions: None. - Additional findings: An intrauterine device is identified in the endometrial canal and appears in g ood position. RIGHT ADNEXA: No significant ovarian cyst or mass. Normal color Doppler blood flow. The right ovary m easures 3.1 x 2.6 x 5.1 cm Alexander LEFT ADNEXA: No significant ovarian cyst or mass. Normal color Doppler blood flow. The left ovary smith sures 4.2 x 2.4 x 4.1 cm. URINARY BLADDER: No significant abnormality. FREE FLUID: None. ADDITIONAL FINDINGS: None. IMPRESSION: No significant abnormality is detected. Signer Name: Aaron House Jr, MD Signed: 06/20/2020 12:32 PM Workstation Name: [id number]
== END 2020-06-20 09:37 | disposition home or self-care (01) ==
LOC: US 09:36
PROVIDERS: ATTEND Obstetrics & Gynecology
DX: N93.0 Postcoital and contact bleeding (principal); N93.8 Other specified abnormal uterine and vaginal bleeding
CPT/HCPCS: 76700; 76830; 76856

== ENCOUNTER 2020-08-28 07:18 | Emergency (ER) | payer BC ==
[2020-08-28 07:30] VITALS: BP 155/101
[2020-08-28] MEDS ORDERED: IBUPROFEN 600 MG TAB PO ONE (08:06)
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
--- NOTE | 2020-08-28 08:53 | XRay Report ---
LEFT HAND 2 VIEW(S) INDICATION / CLINICAL INFORMATION: Left hand middle finger injury COMPARISON: None available. FINDINGS: BONES / JOINT(S): No acute fracture or subluxation. No significant arthritis. SOFT TISSUES: No significant abnormality. ADDITIONAL FINDINGS: None. Signer Name: Alexis Maria MD Signed: 08/28/2020 8:49 AM Workstation Name: [id number]
== END 2020-08-28 09:37 | disposition home or self-care (01) ==
LOC: ED 07:18
DX: S76.912A Strain of unspecified muscles, fascia and tendons at thigh level, left thigh, initial encounter (principal); S56.414A Strain of extensor muscle, fascia and tendon of left middle finger at forearm level, initial encounter; S00.33XA Contusion of nose, initial encounter; I10 Essential (primary) hypertension; F41.9 Anxiety disorder, unspecified; Z79.899 Other long term (current) drug therapy; Z91.040 Latex allergy status; Z91.018 Allergy to other foods; Y04.8XXA Assault by other bodily force, initial encounter; Y93.89 Activity, other specified; Y92.009 Unspecified place in unspecified non-institutional (private) residence as the place of occurrence of the external cause; Y99.8 Other external cause status

== ENCOUNTER 2020-09-27 10:12 | Emergency (ER) | payer BC ==
[2020-09-27 10:27] VITALS: BP 189/104
--- NOTE | 2020-09-27 10:46 | Emergency Department Report ---
ED General Adult HPI - General Chief complaint: Headache Stated complaint: THROAT/NOSE/HEADACHE Time Seen by Provider: 09/27/20 10:32 Source: patient Mode of arrival: Ambulatory Limitations: No Limitations - History of Present Illness Initial comments: 30-year-old female patient with history of hypertension presents to the emergency department with complaints of sore throat and nasal congestion starting 4 days ago. 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 She recently completed a course of antibiotics prescribed by her dentist; she cannot recall which one. No recent travel. Denies fever, chills, ear pain, rash, neck stiffness, chest pain, shortness of breath, palpitations, syncope, wheezing. Denies all other complaints at this time. Severity scale (0 -10): 0 - Related Data Home Medications Medication Instructions Recorded Confirmed Last Taken Norethindrone [Jencycla] 0.35 mg PO DAILY 11/21/19 11/21/19 11/20/19 amLODIPine 5 mg PO DAILY PRN 11/21/19 11/22/19 11/22/19 06:00 methOCARBAMOL [Robaxin TAB] 750 mg PO Q8H PRN 11/21/19 11/21/19 Unknown Previous Rx's Medication Instructions Recorded Last Taken Type cephALEXin [Keflex] 500 mg PO Q6HR #40 capsule 01/24/20 Unknown Rx Acetaminophen [Acetaminophen 8 650 mg PO Q8H PRN #12 tablet.er 04/18/20 Unknown Rx Hour] Azithromycin [Zithromax Z-GOYO] 250 mg PO DAILY #6 tablet 04/18/20 Unknown Rx Benzonatate [Tessalon Perles] 100 mg PO Q12H PRN #12 capsule 04/18/20 Unknown Rx Baclofen [Lioresal] 10 mg PO TID #15 tab 08/28/20 Unknown Rx Ibuprofen [Motrin 800 MG tab] 800 mg PO TID PRN #30 tablet 08/28/20 Unknown Rx guaiFENesin/DEXTROMETHORPHAN 1 each PO Q6H #20 capsule 09/27/20 Unknown Rx [Coricidin Hbp Chest Edinson-Cough] Allergies Allergy/AdvReac Type Severity Reaction Status Date / Time mushroom Allergy Hives Verified 08/28/20 07:24 latex AdvReac Rash Verified 08/28/20 07:24 ED Review of Systems ROS: Stated complaint: THROAT/NOSE/HEADACHE Other details as noted in HPI Other: GENERAL: Negative for fever, chills, weight change, anorexia, fatigue. ENT: Positive for sore throat and nasal congestion. CARDIOVASCULAR: Negative for chest pain, palpitations, lower extremity swelling. PULMONARY: Negative for cough, dyspnea, wheezing, orthopnea, cyanosis. GASTROINTESTINAL: Negative for abdominal pain, nausea, vomiting, diarrhea, constipation. MUSCULOSKELETAL: Negative for joint pain, joint swelling, myalgias, back pain, neck pain. NEUROLOGICAL: Negative for headache, seizure, syncope, paresthesias, weakness. INTEGUMENTARY: Negative for erythema, rash, diaphoresis, laceration, ecchymosis. HEMATOLOGICAL: Negative for hemoptysis, hematemesis, hematochezia, hematuria. PSYCHIATRIC: Negative for hallucinations, suicidal ideation, homicidal ideation, anxiety, depression. ED Past Medical Hx - Past Medical History Previous Medical History?: Yes Hx Hypertension: Yes (Past hx) Hx Liver Disease: No Hx Renal Disease: No Additional medical history: anxiety - Surgical History Past Surgical History?: No - Social History Smoking Status: Never Smoker Substance Use Type: Alcohol - Medications Home Medications: Home Medications Medication Instructions Recorded Confirmed Last Taken Type Norethindrone [Jencycla] 0.35 mg PO DAILY 11/21/19 11/21/19 11/20/19 History amLODIPine 5 mg PO DAILY PRN 11/21/19 11/22/19 11/22/19 06:00 History methOCARBAMOL [Robaxin TAB] 750 mg PO Q8H PRN 11/21/19 11/21/19 Unknown History cephALEXin [Keflex] 500 mg PO Q6HR #40 capsule 01/24/20 Unknown Rx Acetaminophen [Acetaminophen 8 650 mg PO Q8H PRN #12 tablet.er 04/18/20 Unknown Rx Hour] Azithromycin [Zithromax Z-GOYO] 250 mg PO DAILY #6 tablet 04/18/20 Unknown Rx Benzonatate [Tessalon Perles] 100 mg PO Q12H PRN #12 capsule 04/18/20 Unknown Rx Baclofen [Lioresal] 10 mg PO TID #15 tab 08/28/20 Unknown Rx Ibuprofen [Motrin 800 MG tab] 800 mg PO TID PRN #30 tablet 08/28/20 Unknown Rx guaiFENesin/DEXTROMETHORPHAN 1 each PO Q6H #20 capsule 09/27/20 Unknown Rx [Coricidin Hbp Chest Edinson-Cough] ED Physical Exam - General Limitations: No Limitations - Other Other exam information: General: Awake and alert. No acute distress. Head: Atraumatic, normocephalic. Eyes: EOMI. Pupils are equal and round. Normal sclera and conjunctiva. ENT: Oral mucosa is moist. Normal pharyngeal exam. Neck: Supple. No lymphadenopathy. Pulmonary: No respiratory distress. Clear to auscultation bilaterally. Cardiac: Regular rate and rhythm. Pulses are palpable and equal bilaterally. No lower extremity cyanosis or edema. Skin: Warm and dry. No rashes. Abdomen: Soft, non-tender, non-protuberant. No guarding, rigidity, or rebound. Bowel sounds are normal. No organomegaly or masses noted. Back: Normal alignment. No CVA tenderness. Extremities: Symmetrical. Full range of motion intact. Neurological: Alert and oriented, appropriately interactive, no focal deficits. Psych: Cooperative. Appropriate mood and affect. Speech is evenly metered. Thoughts are logically construed. ED Course Vital Signs 09/27/20 10:23 Temperature 98.4 F Pulse Rate 90 Respiratory 17 Rate Blood Pressure 189/104 [Right] O2 Sat by Pulse 100 Oximetry ED Medical Decision Making - Medical Decision Making Differential diagnosis including but not limited to: strep pharyngitis, viral pharyngitis, mononucleosis, peritonsillar abscess, retropharyngeal abscess, Avni's angina, sinusitis Patient presents to emergency department with complaints of nasal congestion, sore throat, nonproductive cough. She is afebrile. Blood pressure is elevated; vital signs otherwise stable. No hypoxia, no respiratory distress. Physical exam is unremarkable. History and exam findings suggestive of viral pharyngitis. Patient will be discharged home with appropriate symptomatic treat ment and referred to primary care provider for close outpatient follow-up. Patient expressed understanding and is agreeable to plan of care. Disease transmission precautions discussed. Strict return precautions provided. Of note, patient's blood pressure is noted to be elevated in the emergency department. She has previously been diagnosed with hypertension but is not currently on any medication. Patient specifically denies chest pain, shortness of breath, palpitations, syncope, headache, visual disturbance. No signs/symptoms of hypertensive emergency warranting further diagnostic work-up on an emergent basis at this time per ACEP guidelines. Patient has been encouraged to follow-up with her primary care provider regarding her elevated blood pressure reading. Lifestyle modifications advised. History, exam, diagnostic testing, and current condition do not suggest worrisome pathology to warrant further testing, continued ED treatment, admission, or surgical evaluation at this point. Given the low probability of a significant medical illness, it would be more likely to result in harm than benefit to perform further testing at this stage. Discussed findings, presumptive diagnosis, need for follow-up and specific signs/symptoms that should prompt immediate return to the emergency department. Instructions were explained in detail to the patient in addition to giving written discharge information. Patient expressed understanding and was given the opportunity to ask questions, all of which were satisfactorily answered prior to discharge home. Critical care attestation.: If time is entered above; I have spent that time in minutes in the direct care of this critically ill patient, excluding procedure time. ED Disposition Clinical Impression: History of hypertension Pharyngitis Qualifiers: Pharyngitis/tonsillitis etiology: unspecified etiology Qualified Code(s): J02.9 - Acute pharyngitis, unspecified Disposition: DC-01 TO HOME OR SELFCARE Is pt being admited?: No Does the pt Need Aspirin: No Condition: Stable Instructions: Sore Throat, [id number]-[id number] Additional Instructions: Take Tylenol every 4 hours as needed for pain. Take Coricidin as directed for cough/congestion. Rest. Drink plenty fluids. Wash hands frequently to prevent disease transmission. Do not share food or drinks with others. Reduce your dietary sodium intake. Exercise daily. You must follow-up with primary care provider for further evaluation and definitive management of your blood pressure. Call today to schedule an appointment. Return to the emergency department immediately for new or worsening symptoms. Specifically, return to the emergency department immediately for chest pain, shortness of breath, mental status changes, numbness, weakness, rash, dehydration, mental status changes, or any other concerns. Prescriptions: guaiFENesin/DEXTROMETHORPHAN [Coricidin Hbp Chest Edinson-Cough] 1 each PO Q6H #20 capsule Referrals: LUIS BILLINGS MD [Staff Physician] - 3-5 Days [facility] [Outside] - 3-5 Days [facility] [Outside] - 3-5 Days [facility] [Outside] - 3-5 Days Forms: Work/School Release Form(ED) Time of Disposition: 10:47
== END 2020-09-27 10:33 | disposition home or self-care (01) ==
LOC: ED 10:12
DX: J02.9 Acute pharyngitis, unspecified (principal); I10 Essential (primary) hypertension; F41.9 Anxiety disorder, unspecified; Z79.899 Other long term (current) drug therapy; Z88.8 Allergy status to other drugs, medicaments and biological substances
CPT/HCPCS: 99281

== ENCOUNTER 2020-11-09 07:28 | Emergency (ER) | payer BC ==
[2020-11-09] MEDS ORDERED: ACETAMINOPHEN 500 MG TAB PO ONE (08:47)
--- NOTE | 2020-11-09 08:47 | Emergency Department Report ---
- General Chief Complaint: Sore Throat Stated Complaint: EARS/NOSE/THROAT PAIN Time Seen by Provider: 11/09/20 07:44 Source: patient Mode of arrival: Ambulatory Limitations: No Limitations - History of Present Illness Initial Comments: 30-year-old female with a past medical history of hypertension but noncompliant with medications presents to the ER today with complaints of sore throat. Patient states the symptoms started mildly yesterday but got worse last night. She reports associated ear pain and generalized body aches. She denies any rhinorrhea nasal congestion cough, she denies any GI or symptoms. She does report ill contact with her kids who has had a viral infection recently. She denies any recent travel. She reports no other symptoms at this time. MD Complaint: sore throat -: days(s) (1) Severity: moderate - Related Data Home Medications Medication Instructions Recorded Confirmed Last Taken Norethindrone [Jencycla] 0.35 mg PO DAILY 11/21/19 11/21/19 11/20/19 methOCARBAMOL [Robaxin TAB] 750 mg PO Q8H PRN 11/21/19 11/21/19 Unknown Previous Rx's Medication Instructions Recorded Last Taken Type cephALEXin [Keflex] 500 mg PO Q6HR #40 capsule 01/24/20 Unknown Rx Azithromycin [Zithromax Z-GOYO] 250 mg PO DAILY #6 tablet 04/18/20 Unknown Rx Benzonatate [Tessalon Perles] 100 mg PO Q12H PRN #12 capsule 04/18/20 Unknown Rx Baclofen [Lioresal] 10 mg PO TID #15 tab 08/28/20 Unknown Rx guaiFENesin/DEXTROMETHORPHAN 1 each PO Q6H #20 capsule 09/27/20 Unknown Rx [Coricidin Hbp Chest Edinson-Cough] Acetaminophen [Acetaminophen 8 650 mg PO Q8H PRN #12 tablet.er 11/09/20 Unknown Rx Hour] Amoxicillin [Trimox CAP] 500 mg PO Q12H #20 capsule 11/09/20 Unknown Rx Ibuprofen [Motrin 800 MG tab] 800 mg PO TID PRN #30 tablet 11/09/20 Unknown Rx amLODIPine 5 mg PO DAILY #30 11/09/20 Unknown Rx Allergies Allergy/AdvReac Type Severity Reaction Status Date / Time mushroom Allergy Hives Verified 11/09/20 09:44 latex AdvReac Rash Verified 11/09/20 09:44 ED Review of Systems ROS: Stated complaint: EARS/NOSE/THROAT PAIN Other details as noted in HPI Comment: All other systems reviewed and negative Constitutional: denies: chills, diaphoresis, fever, malaise, weakness ENT: ear pain, throat pain. denies: dental pain, hearing loss, epistaxis, congestion Respiratory: denies: cough, shortness of breath, SOB with exertion, SOB at rest, wheezing Cardiovascular: denies: chest pain, palpitations Gastrointestinal: denies: abdominal pain, nausea, vomiting, diarrhea, constipation, hematemesis, melena, hematochezia Genitourinary: denies: urgency, dysuria, frequency, hematuria, discharge, abnormal menses, dyspareunia Musculoskeletal: denies: back pain, joint swelling, arthralgia, myalgia Skin: denies: rash, lesions, change in color, change in hair/nails Neurological: denies: headache, weakness, numbness, paresthesias, confusion, abnormal gait, vertigo Psychiatric: denies: anxiety, depression, auditory hallucinations, visual hallucinations, homicidal thoughts, suicidal thoughts Hematological/Lymphatic: denies: easy bleeding, easy bruising, swollen glands ED Past Medical Hx - Past Medical History Hx Hypertension: Yes (Past hx) Hx Liver Disease: No Hx Renal Disease: No Additional medical history: anxiety - Social History Smoking Status: Never Smoker Substance Use Type: Alcohol - Medications Home Medications: Home Medications Medication Instructions Recorded Confirmed Last Taken Type Norethindrone [Jencycla] 0.35 mg PO DAILY 11/21/19 11/21/19 11/20/19 History methOCARBAMOL [Robaxin TAB] 750 mg PO Q8H PRN 11/21/19 11/21/19 Unknown History cephALEXin [Keflex] 500 mg PO Q6HR #40 capsule 01/24/20 Unknown Rx Azithromycin [Zithromax Z-GOYO] 250 mg PO DAILY #6 tablet 04/18/20 Unknown Rx Benzonatate [Tessalon Perles] 100 mg PO Q12H PRN #12 capsule 04/18/20 Unknown Rx Baclofen [Lioresal] 10 mg PO TID #15 tab 08/28/20 Unknown Rx guaiFENesin/DEXTROMETHORPHAN 1 each PO Q6H #20 capsule 09/27/20 Unknown Rx [Coricidin Hbp Chest Edinson-Cough] Acetaminophen [Acetaminophen 8 650 mg PO Q8H PRN #12 tablet.er 11/09/20 Unknown Rx Hour] Amoxicillin [Trimox CAP] 500 mg PO Q12H #20 capsule 11/09/20 Unknown Rx Ibuprofen [Motrin 800 MG tab] 800 mg PO TID PRN #30 tablet 11/09/20 Unknown Rx amLODIPine 5 mg PO DAILY #30 11/09/20 Unknown Rx ED Physical Exam - General Limitations: No Limitations General appearance: alert, in no apparent distress, obese - Head Head exam: Present: atraumatic, normocephalic, normal inspection - Eye Eye exam: Present: normal appearance, PERRL, EOMI Pupils: Present: normal accommodation - ENT ENT exam: Present: mucous membranes moist - Expanded ENT Exam Expanded TM/Canal exam: Effusion: Right TM, Left TM Mouth exam: Absent: drooling, trismus, muffled voice, tongue normal, tongue elevation, laceration Throat exam: Positive: tonsillar erythema, tonsillomegaly, tonsillar exudate. Negative: R peritonsillar mass, L peritonsillar mass - Neck Neck exam: Present: normal inspection, full ROM. Absent: meningismus - Respiratory Respiratory exam: Present: normal lung sounds bilaterally. Absent: respiratory distress, wheezes, rales, rhonchi - Cardiovascular Cardiovascular Exam: Present: regular rate, normal rhythm, normal heart sounds - GI/Abdominal GI/Abdominal exam: Present: soft. Absent: distended, tenderness, guarding, rebound - Neurological Exam Neurological exam: Present: alert, oriented X3, CN II-XII intact, normal gait - Psychiatric Psychiatric exam: Present: normal affect, normal mood - Skin Skin exam: Present: intact ED Course Vital Signs 11/09/20 11/09/20 07:36 09:40 Temperature 100.4 F H 99.4 F Pulse Rate 108 H 92 H Respiratory 18 18 Rate Blood Pressure 188/108 153/78 [Left] O2 Sat by Pulse 96 Oximetry ED Medical Decision Making - Medical Decision Making Patient's vital signs including her temperature and heart rate improved after Tylenol ibuprofen. Patient blood pressure also improved without any intervention. She does admit that she was started on blood pressure medication by a primary care doctor whom she saw twice last year. She stated that he took her off the blood pressure medication, but she admitted that after she followed up with a doctor 1 month after starting the blood pressure medication her blood pressure had improved and no additional refills were sent to the pharmacy and so she assumed that she did not need to take it anymore. Patient will be started back on the amlodipine. Her history and physical exam is concerning for possible strep infection. No signs of peritonsillar abscess or deep space neck abscess, or meningitis or sepsis noted at this time, therefore no additional work-up or testing needed at this time. Patient will be started on antibiotics in addition to the blood pressure medication. Discussed suspected diagnosis and treatment plan with patient. Informed her that is important that she continues taking the blood pressure medication and to follow-up with the primary care doctor listed on her discharge instructions. Patient stable at time of discharge. Critical care attestation.: If time is entered above; I have spent that time in minutes in the direct care of this critically ill patient, excluding procedure time. ED Disposition Clinical Impression: Exudative pharyngitis, Uncontrolled hypertension Disposition: TO HOME OR SELFCARE Is pt being admited?: No Does the pt Need Aspirin: No Condition: Stable Instructions: Strep Throat, Adult, [id number], Hypertension, Adult, [id number], Hypertension (ED) Additional Instructions: Take the antibiotics as prescribed. Recommend that you take Motrin and or Tylenol from [id number] to help with any pain and fever. Also take the amlodipine as prescribed and follow-up with the primary care doctor listed on your discharge instructions for continued monitoring of your blood pressure. Recommend rest and lots of fluids. Return to the ER if your symptoms changes or worsens in any way. Prescriptions: Acetaminophen [Acetaminophen 8 Hour] 650 mg PO Q8H PRN #12 tablet.er PRN Reason: Pain , Severe (7-10) amLODIPine 5 mg PO DAILY #30 Ibuprofen [Motrin 800 MG tab] 800 mg PO TID PRN #30 tablet PRN Reason: Pain Amoxicillin [Trimox CAP] 500 mg PO Q12H #20 capsule Referrals: LUIS BILLINGS MD [Staff Physician] - 3-5 Days Forms: Work/School Release Form(ED) Time of Disposition: 10:22
[2020-11-09] MEDS ORDERED: IBUPROFEN 600 MG TAB PO ONE (08:56)
[2020-11-09 09:41] VITALS: BP 153/78
== END 2020-11-09 11:46 | disposition home or self-care (01) ==
LOC: ED 07:28
DX: J02.9 Acute pharyngitis, unspecified (principal); I10 Essential (primary) hypertension; F41.9 Anxiety disorder, unspecified; Z72.89 Other problems related to lifestyle; Z91.018 Allergy to other foods; Z91.040 Latex allergy status; Z79.899 Other long term (current) drug therapy
CPT/HCPCS: 99282

== ENCOUNTER 2020-11-25 07:34 | Emergency (ER) | payer BC ==
[2020-11-25] MEDS ORDERED: HYDROcodone/ACETAMINOPHEN 10-325MG TAB PO ONE (08:13)
[2020-11-25] MEDS ORDERED: TETANUS,DIPH,PERTUSS(ACELL) VACCINE 0.5 ML SYRINGE IM ONE (08:13)
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
[2020-11-25 09:36] LABS: HCG Qualitative,Urine Negative (Negative)
[2020-11-25 09:38] LABS: Bilirubin,Urine NEG (Negative); Blood,Urine LG (Negative); Color,Urine Yellow (Yellow); Mucus,Urine 1+ /HPF; Urobilinogen,Urine < 2.0 mg/dL (<2.0)
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
[2020-11-25 10:06] VITALS: BP 142/83
== END 2020-11-25 10:35 | disposition home or self-care (01) ==
LOC: ED 07:34
DX: S16.1XXA Strain of muscle, fascia and tendon at neck level, initial encounter (principal); S00.03XA Contusion of scalp, initial encounter; S00.81XA Abrasion of other part of head, initial encounter; I10 Essential (primary) hypertension; F41.9 Anxiety disorder, unspecified; Z91.040 Latex allergy status; Z91.018 Allergy to other foods; Z79.899 Other long term (current) drug therapy; Y04.8XXA Assault by other bodily force, initial encounter; Y93.89 Activity, other specified; Y92.89 Other specified places as the place of occurrence of the external cause; Y99.8 Other external cause status
CPT/HCPCS: 70450; 70486; 72125; 81001; 81025; 90471; 90715; 99284

== ENCOUNTER 2021-01-04 17:06 | Emergency (ER) | payer BC | END 2021-01-04 17:10 | disposition left against medical advice (07) | LOC: ED 17:06 | DX: Z00.8 Encounter for other general examination (principal); Z53.21 Procedure and treatment not carried out due to patient leaving prior to being seen by health care provider ==

== ENCOUNTER 2021-01-08 15:11 | Outpatient (CLI) | payer BC ==
[2021-01-08 16:17] LABS: Hepatitis C Virus Antibody Non-Reactive (NonReactive)
== END 2021-01-08 15:12 | disposition home or self-care (01) ==
LOC: LAB 15:11
PROVIDERS: ATTEND Obstetrics & Gynecology
DX: Z11.3 Encounter for screening for infections with a predominantly sexual mode of transmission (principal); N90.9 Noninflammatory disorder of vulva and perineum, unspecified
CPT/HCPCS: 36415; 86592; 86706; 86803; 87529

== ENCOUNTER 2021-01-22 11:09 | Emergency (ER) | payer BC ==
--- NOTE | 2021-01-22 14:27 | Emergency Department Report ---
- General Chief Complaint: Upper Respiratory Infection Stated Complaint: DIZZY,HEADACHE, CHEST PAIN Time Seen by Provider: 01/22/21 14:27 Source: patient Mode of arrival: Ambulatory Limitations: No Limitations - History of Present Illness Initial Comments: 30 year old female presents to ED with complaints of flu-like/COVID like symptoms. Patient states that symptoms started about 5 days ago. She reports rhinorrhea, nasal congestion, mild cough, headache, sore throat with swelling to her tongue/uvula but she states that the swelling has improved, and left-sided chest ache which she notices mainly when she leans forward as well as dizziness and lightheadedness when she moves from a bending to standing position. She reports nausea but no vomiting. She denies any abdominal pain, diarrhea, UTI symptoms or any abnormal vaginal symptoms. Patient states that she works in the [employer] department here in the hospital and works on the [email or web address] floor. She states that she has also been exposed to family members with Covid. She has not taken a COVID-19 test since she has been sick in the past 5 days. She has also not taken a COVID-19 vaccine. She reports no wheezing, shortness of breath, syncope, vision changes, focal neurological deficits, speech changes or any additional symptoms at this time. She states that she is not sure of her last menstrual cycle, she states that she has a history of irregular menstrual cycle since she has been on IUD Patient blood pressure was noted to be elevated in triage. She states that she has been told in the past whenever she would come to the ER that her blood pressure was high and typically they would start her on blood pressure medication but whenever she would follow-up with the primary care doctor they never gave her refills. Patient denies any other significant past medical history MD Complaint: cough, sore throat, rhinorrhea, nasal congestion, other (Chest pain ) -: days(s) (5) - Related Data Home Medications Medication Instructions Recorded Confirmed Last Taken Norethindrone [Jencycla] 0.35 mg PO DAILY 11/21/19 11/21/19 11/20/19 methOCARBAMOL [Robaxin TAB] 750 mg PO Q8H PRN 11/21/19 11/21/19 Unknown Previous Rx's Medication Instructions Recorded Last Taken Type cephALEXin [Keflex] 500 mg PO Q6HR #40 capsule 08/25/20 Unknown Rx Azithromycin [Zithromax Z-GOYO] 250 mg PO DAILY #6 tablet 04/18/20 Unknown Rx Benzonatate [Tessalon Perles] 100 mg PO Q12H PRN #12 capsule 04/18/20 Unknown Rx Baclofen [Lioresal] 10 mg PO TID #15 tab 08/28/20 Unknown Rx guaiFENesin/DEXTROMETHORPHAN 1 each PO Q6H #20 capsule 09/27/20 Unknown Rx [Coricidin Hbp Chest Edinson-Cough] Acetaminophen [Acetaminophen 8 650 mg PO Q8H PRN #12 tablet.er 11/09/20 Unknown Rx Hour] Amoxicillin [Trimox CAP] 500 mg PO Q12H #20 capsule 11/09/20 Unknown Rx Amoxicillin/K Clav Tab [Augmentin 1 tab PO Q12HR #20 tab 11/25/20 Unknown Rx 875 mg] Naproxen 500 mg PO Q12H PRN #12 tablet 11/25/20 Unknown Rx Ibuprofen [Motrin 800 MG tab] 800 mg PO TID PRN #30 tablet 01/22/21 Unknown Rx amLODIPine 5 mg PO DAILY #30 01/22/21 Unknown Rx Allergies Allergy/AdvReac Type Severity Reaction Status Date / Time mushroom Allergy Hives Verified 01/22/21 14:03 latex AdvReac Rash Verified 01/22/21 14:03 ED Review of Systems ROS: Stated complaint: DIZZY,HEADACHE, CHEST PAIN Other details as noted in HPI Comment: All other systems reviewed and negative Constitutional: denies: chills, fever Eyes: denies: eye pain, eye discharge, vision change ENT: denies: ear pain, throat pain, dental pain, hearing loss, epistaxis, conges tion Respiratory: cough. denies: shortness of breath, SOB with exertion, SOB at rest, wheezing Cardiovascular: chest pain (Described as an ache mainly when she leans forward) Gastrointestinal: denies: abdominal pain, nausea, vomiting, diarrhea, constipation, hematemesis, hematochezia Genitourinary: denies: urgency, dysuria, frequency, hematuria, discharge, abnormal menses, dyspareunia Musculoskeletal: denies: back pain, joint swelling, arthralgia Skin: denies: rash, lesions, change in color, change in hair/nails, pruritus Neurological: headache. denies: weakness, paresthesias, confusion, abnormal gait, vertigo Psychiatric: denies: anxiety, depression, auditory hallucinations, visual halluc inations, homicidal thoughts, suicidal thoughts Hematological/Lymphatic: denies: easy bleeding, easy bruising, swollen glands ED Past Medical Hx - Past Medical History Hx Hypertension: Yes (Past hx) Hx Liver Disease: No Hx Renal Disease: No Additional medical history: anxiety - Surgical History Past Surgical History?: No - Social History Smoking Status: Never Smoker Substance Use Type: Alcohol - Medications Home Medications: Home Medications Medication Instructions Recorded Confirmed Last Taken Type Norethindrone [Jencycla] 0.35 mg PO DAILY 11/21/19 11/21/19 11/20/19 History methOCARBAMOL [Robaxin TAB] 750 mg PO Q8H PRN 11/21/19 11/21/19 Unknown History cephALEXin [Keflex] 500 mg PO Q6HR #40 capsule 01/24/20 Unknown Rx Azithromycin [Zithromax Z-GOYO] 250 mg PO DAILY #6 tablet 04/18/20 Unknown Rx Benzonatate [Tessalon Perles] 100 mg PO Q12H PRN #12 capsule 04/18/20 Unknown Rx Baclofen [Lioresal] 10 mg PO TID #15 tab 08/28/20 Unknown Rx guaiFENesin/DEXTROMETHORPHAN 1 each PO Q6H #20 capsule 09/27/20 Unknown Rx [Coricidin Hbp Chest Edinson-Cough] Acetaminophen [Acetaminophen 8 650 mg PO Q8H PRN #12 tablet.er 11/09/20 Unknown Rx Hour] Amoxicillin [Trimox CAP] 500 mg PO Q12H #20 capsule 11/09/20 Unknown Rx Amoxicillin/K Clav Tab [Augmentin 1 tab PO Q12HR #20 tab 11/25/20 Unknown Rx 875 mg] Naproxen 500 mg PO Q12H PRN #12 tablet 11/25/20 Unknown Rx Ibuprofen [Motrin 800 MG tab] 800 mg PO TID PRN #30 tablet 01/22/21 Unknown Rx amLODIPine 5 mg PO DAILY #30 01/22/21 Unknown Rx ED Physical Exam - General Limitations: No Limitations General appearance: alert, in no apparent distress - Head Head exam: Present: atraumatic, normocephalic, normal inspection - Eye Eye exam: Present: normal appearance, PERRL, EOMI Pupils: Present: normal accommodation - ENT ENT exam: Present: mucous membranes moist - Expanded ENT Exam Expanded Mouth exam: Present: normal external inspection Throat exam: Positive: tonsillar erythema, tonsillomegaly. Negative: tonsillar exudate, R peritonsillar mass, L peritonsillar mass - Neck Neck exam: Present: normal inspection, full ROM. Absent: meningismus - Respiratory Respiratory exam: Present: normal lung sounds bilaterally. Absent: respiratory distress, wheezes, rales, rhonchi - Cardiovascular Cardiovascular Exam: Present: regular rate, normal rhythm, normal heart sounds - GI/Abdominal GI/Abdominal exam: Present: soft. Absent: distended, tenderness, guarding, rebound - Neurological Exam Neurological exam: Present: alert, oriented X3, CN II-XII intact, normal gait - Psychiatric Psychiatric exam: Present: normal affect, normal mood - Skin Skin exam: Present: intact ED Course Vital Signs 01/22/21 01/22/21 14:11 16:09 Temperature 98.7 F 97.2 F L Pulse Rate 92 H 81 Respiratory 18 16 Rate Blood Pressure 174/105 Blood Pressure 151/104 [Left] O2 Sat by Pulse 98 100 Oximetry ED Medical Decision Making - Lab Data Result diagrams: 01/22/21 14:57 01/22/21 14:57 - EKG Data EKG shows normal: sinus rhythm Rate: normal (86) No standard instances Rhythm: NSR P Waves: LAE QRS morphology: poor R-wave progression - Radiology Data Radiology results: report reviewed Patient: FARRUKH CLANCY MR# : [id number] : 1990 Acct:[id number] Age/Sex: 30 / F ADM Date: 01/22/21 Loc: ED Attending Dr: Ordering Physician: JODY JOSÉ Date of Service: 01/22/21 Procedure(s): XR chest routine 2V Accession Number(s): [id number] cc: JODY JOSÉ Fluoro Time In Minutes: CHEST 2 VIEWS INDICATION / CLINICAL INFORMATION: chest pain. COMPARISON: 04/18/2020, 09/21/2019 FINDINGS: SUPPORT DEVICES: None. HEART / MEDIASTINUM: No significant abnormality. LUNGS / PLEURA: No significant pulmonary or pleural abnormality. No pneumothorax. Previously described bilateral pulmonary opacities on the last chest radiograph of 04/18/2020 has resolved. ADDITIONAL FINDINGS: No significant additional findings. IMPRESSION: 1. No acute findings. Signer Name: Renay Tay MD Signed: 01/22/2021 3:20 PM Workstation Name: [id number] Transcribed By: Dictated By: Renay Tay MD Electronically Authenticated By: Renay Tay MD Signed Date/Time: 01/22/21 1520 DD/ 1519 TD/TT: - Medical Decision Making All labs reviewed and unremarkable. CXR shows nothing acute. EKG show no STEMI, or other acute ischemic changes or significant dysrhythmias. rapid strep negative. Pt currently resting comfortably sitting in the chair and playing on her phone. She is not in any pain or respiratory distress. She is not toxic or ill- appearing and appears hydrated. She is neurologically intact with a normal gait. Pt BP still elevated in ED at 154/101, though systolic has improved mildly but pt has known hx of HTN and has been non compliant with her medications. Her remaining VS stable. Suspect her symptoms likely more viral illness like possible COVID related than cardiac or PE at this time and also there is no evidence of sepsis, acute respiratory distress syndrome, meningitis, TIA/CVA or other intracranial abnormalities on exam. Discussed all labs including cxr and EKG results with patient. Recommend that she gets an outpatient COVID 19 test. At this time there is no dictation for any additional testing, or admission. She also be started back on have high blood pressure medication and she was given recommendation as to what she can take [id number] to help her URI symptoms. Recommend close follow-up with primary care doctor for continued monitoring of her blood pressure. Patient expressed understanding of all instructions and agree with plan. Patient was stable at time of discharge. Critical care attestation.: If time is entered above; I have spent that time in minutes in the direct care of this critically ill patient, excluding procedure time. ED Disposition Clinical Impression: Viral illness, Suspected COVID-19 virus infection, Uncontrolled hypertension Disposition: HOME / SELF CARE / HOMELESS Is pt being admited?: No Does the pt Need Aspirin: No Condition: Stable Instructions: Viral Illness, Adult, Hypertension (ED), Hypertension, Adult Additional Instructions: I recommend that you take a COVID 19 test when you leave her today. I recommend taking tylenol and or ibuprofen as needed for pain and or fever. I recommend taking Coricidin cough cold medications to help your symptoms. I recommend drinking lots of fluids, rest and taking a multivitamin. Follow up closely with PCP for continued monitoring of your blood pressure. REturn to ED if worse. Prescriptions: amLODIPine 5 mg PO DAILY #30 Ibuprofen [Motrin 800 MG tab] 800 mg PO TID PRN #30 tablet PRN Reason: Pain Referrals: LUIS BILLINGS MD [Staff Physician] - 3-5 Days Forms: Work/School Release Form(ED) Time of Disposition: 16:29
[2021-01-22] MEDS ORDERED: ASPIRIN 325 MG TAB PO ONE (14:36)
--- NOTE | 2021-01-22 15:24 | XRay Report ---
CHEST 2 VIEWS INDICATION / CLINICAL INFORMATION: chest pain. COMPARISON: 04/18/2020, 09/21/2019 FINDINGS: SUPPORT DEVICES: None. HEART / MEDIASTINUM: No significant abnormality. LUNGS / PLEURA: No significant pulmonary or pleural abnormality. No pneumothorax. Previously describe d bilateral pulmonary opacities on the last chest radiograph of 04/18/2020 has resolved. ADDITIONAL FINDINGS: No significant additional findings. IMPRESSION: 1. No acute findings. Signer Name: Renay Tay MD Signed: 01/22/2021 3:20 PM Workstation Name: [id number]
[2021-01-22] MEDS ORDERED: HYDROcodone/ACETAMINOPHEN 5-325 MG TAB PO ONE (15:28)
[2021-01-22 15:36] LABS: Alanine Aminotransferase 9 units/L (7-56); Albumin 4.2 g/dL (3.9-5); Blood Urea Nitrogen 6 mg/dL (7-17); Calcium 9.5 mg/dL (8.4-10.2); Hemolysis Index 8
[2021-01-22 15:37] LABS: BUN/Creatinine Ratio 10
[2021-01-22 15:41] LABS: Basophils % (Auto) 0.5 % (0.0-1.8); Eosinophils % (Auto) 0.8 % (0.0-4.3); Hematocrit 40.9 % (30.3-42.9); Hemoglobin 13.7 gm/dl (10.1-14.3); Lymphocytes # (Auto) 1.8 K/mm3 (1.2-5.4); Lymphocytes % (Auto) 36.5 % (13.4-35.0); Mean Corpuscular HGB Conc 33 % (30-34); Mean Corpuscular Volume 84 fl (79-97); Monocytes # (Auto) 0.6 K/mm3 (0.0-0.8); Platelet Count 271 K/mm3 (140-440); Red Blood Count 4.86 M/mm3 (3.65-5.03); Red Cell Distribution Width 15.1 % (13.2-15.2)
[2021-01-22 16:17] VITALS: BP 151/104
[2021-01-22 17:07] LABS: Erythrocyte Sedimentation Rate 53 mm/Hr (0-20)
--- NOTE | 2021-01-23 11:27 | Electrocardiograph Report ---
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 No previous ECG available for comparison Electronically Signed On 01-23-2021 11:26:47 EDT by Bandar Tejada
== END 2021-01-22 16:42 | disposition home or self-care (01) ==
LOC: ED 11:09
DX: B34.9 Viral infection, unspecified (principal); I10 Essential (primary) hypertension; Z20.822 Contact with and (suspected) exposure to COVID-19; F41.9 Anxiety disorder, unspecified; Z72.89 Other problems related to lifestyle; Z91.013 Allergy to seafood; Z91.040 Latex allergy status; Z79.899 Other long term (current) drug therapy
CPT/HCPCS: 36415; 71046; 80053; 84484; 85025; 85652; 86140; 87116; 87430; 93005; 99284

== ENCOUNTER 2021-03-26 11:16 | Emergency (ER) | payer BC ==
[2021-03-26 11:46] VITALS: BP 154/86
--- NOTE | 2021-03-26 11:54 | Emergency Department Report ---
ED General Adult HPI - General Chief complaint: Extremity Problem,Nontraumatic Stated complaint: LT LEG AND KNEE PAIN Time Seen by Provider: 03/26/21 11:46 Source: patient Mode of arrival: Ambulatory Limitations: No Limitations - History of Present Illness Initial comments: 30-year-old -[place] female patient presents with complaints of left low er leg pain and bruising x2 weeks. She states that she believes she injured her leg while moving heavy furniture 2 weeks ago, however she does not remember a particular injury. She denies any swelling or pain to her posterior leg or thigh, joint swelling, or difficulty with ambulation. Patient states the pain occurs only to touch and sometimes with ambulation. She also denies any recent long travel, chest pain, cough/hemoptysis, history of DVT/PE, hormone use, or history of cancer. Past medical history includes hypertension for which patient takes amlodipine. Severity scale (0 -10): 10 - Related Data Home Medications Medication Instructions Recorded Confirmed Last Taken Norethindrone [Jencycla] 0.35 mg PO DAILY 11/21/19 11/21/19 11/20/19 methOCARBAMOL [Robaxin TAB] 750 mg PO Q8H PRN 11/21/19 11/21/19 Unknown Previous Rx's Medication Instructions Recorded Last Taken Type cephALEXin [Keflex] 500 mg PO Q6HR #40 capsule 01/24/20 Unknown Rx Azithromycin [Zithromax Z-GOYO] 250 mg PO DAILY #6 tablet 04/18/20 Unknown Rx Benzonatate [Tessalon Perles] 100 mg PO Q12H PRN #12 capsule 04/18/20 Unknown Rx Baclofen [Lioresal] 10 mg PO TID #15 tab 08/28/20 Unknown Rx guaiFENesin/DEXTROMETHORPHAN 1 each PO Q6H #20 capsule 09/27/20 Unknown Rx [Coricidin Hbp Chest Edinson-Cough] Acetaminophen [Acetaminophen 8 650 mg PO Q8H PRN #12 tablet.er 11/09/20 Unknown Rx Hour] Amoxicillin [Trimox CAP] 500 mg PO Q12H #20 capsule 11/09/20 Unknown Rx Amoxicillin/K Clav Tab [Augmentin 1 tab PO Q12HR #20 tab 11/25/20 Unknown Rx 875 mg] Naproxen 500 mg PO Q12H PRN #12 tablet 11/25/20 Unknown Rx Ibuprofen [Motrin 800 MG tab] 800 mg PO TID PRN #30 tablet 01/22/21 Unknown Rx amLODIPine 5 mg PO DAILY #30 01/22/21 Unknown Rx Naproxen 500 mg PO BID PRN #14 tablet 03/26/21 Unknown Rx Allergies Allergy/AdvReac Type Severity Reaction Status Date / Time mushroom Allergy Hives Verified 03/26/21 11:46 latex AdvReac Rash Verified 03/26/21 11:46 ED Review of Systems ROS: Stated complaint: LT LEG AND KNEE PAIN Other details as noted in HPI Constitutional: denies: chills, fever Respiratory: denies: cough, shortness of breath Cardiovascular: denies: chest pain Musculoskeletal: arthralgia. denies: joint swelling Neurological: denies: numbness, paresthesias, abnormal gait Hematological/Lymphatic: denies: easy bleeding, easy bruising ED Past Medical Hx - Past Medical History Hx Hypertension: Yes (Past hx) Hx Liver Disease: No Hx Renal Disease: No Additional medical history: anxiety - Social History Smoking Status: Never Smoker Substance Use Type: Alcohol - Medications Home Medications: Home Medications Medication Instructions Recorded Confirmed Last Taken Type Norethindrone [Jencycla] 0.35 mg PO DAILY 11/21/19 11/21/19 11/20/19 History methOCARBAMOL [Robaxin TAB] 750 mg PO Q8H PRN 11/21/19 11/21/19 Unknown History cephALEXin [Keflex] 500 mg PO Q6HR #40 capsule 01/24/20 Unknown Rx Azithromycin [Zithromax Z-GOYO] 250 mg PO DAILY #6 tablet 04/18/20 Unknown Rx Benzonatate [Tessalon Perles] 100 mg PO Q12H PRN #12 capsule 04/18/20 Unknown Rx Baclofen [Lioresal] 10 mg PO TID #15 tab 08/28/20 Unknown Rx guaiFENesin/DEXTROMETHORPHAN 1 each PO Q6H #20 capsule 09/27/20 Unknown Rx [Coricidin Hbp Chest Edinson-Cough] Acetaminophen [Acetaminophen 8 650 mg PO Q8H PRN #12 tablet.er 11/09/20 Unknown Rx Hour] Amoxicillin [Trimox CAP] 500 mg PO Q12H #20 capsule 11/09/20 Unknown Rx Amoxicillin/K Clav Tab [Augmentin 1 tab PO Q12HR #20 tab 11/25/20 Unknown Rx 875 mg] Naproxen 500 mg PO Q12H PRN #12 tablet 11/25/20 Unknown Rx Ibuprofen [Motrin 800 MG tab] 800 mg PO TID PRN #30 tablet 01/22/21 Unknown Rx amLODIPine 5 mg PO DAILY #30 01/22/21 Unknown Rx Naproxen 500 mg PO BID PRN #14 tablet 03/26/21 Unknown Rx ED Physical Exam - General Limitations: No Limitations General appearance: alert, in no apparent distress, obese - Head Head exam: Present: atraumatic, normocephalic - Eye Eye exam: Present: normal appearance. Absent: scleral icterus - Respiratory Respiratory exam: Present: normal lung sounds bilaterally. Absent: respiratory distress - Cardiovascular Cardiovascular Exam: Present: regular rate, normal rhythm - Extremities Exam Extremities exam: Present: full ROM, other (Approximately 5 cm round bruise noted to left lower anterior thigh with tenderness to palpation; no erythema, obvious bony deformities, or difficulty moving the limb noted; no swelling of the lower extremities noted). Absent: calf tenderness - Neurological Exam Neurological exam: Present: alert, oriented X3, normal gait - Psychiatric Psychiatric exam: Present: normal affect, normal mood - Skin Skin exam: Present: warm, dry, intact, normal color. Absent: rash ED Course Vital Signs 03/26/21 11:44 Temperature 98.3 F Pulse Rate 97 H Respiratory 16 Rate Blood Pressure 154/86 [Left] O2 Sat by Pulse 98 Oximetry ED Medical Decision Making - Radiology Data Radiology results: report reviewed - Medical Decision Making 30-year-old -[place] female patient presents with complaints of left lower leg pain and bruising x2 weeks. She states that she believes she injured her leg while moving heavy furniture 2 weeks ago, however she does not remember a particular injury. She denies any swelling or pain to her posterior leg or thigh, joint swelling, or difficulty with ambulation. Patient states the pain occurs only to touch and sometimes with ambulation. She also denies any recent long travel, chest pain, cough/hemoptysis, history of DVT/PE, hormone use, or history of cancer. Past medical history includes hypertension for which patient takes amlodipine. X-rays negative for any acute bony abnormalities. PERC score = 0. Recommend conservative treatment for contusion. Patient to follow-up with PCP in 3 to 5 days. She is well-appearing, her vitals are within normal limits, she is stable for discharge home. Strict return precautions were discussed in detail with patient who verbalizes understanding. Critical care attestation.: If time is entered above; I have spent that time in minutes in the direct care of this critically ill patient, excluding procedure time. ED Disposition Clinical Impression: Contusion of left leg Disposition: HOME / SELF CARE / HOMELESS Is pt being admited?: No Condition: Stable Instructions: Contusion Additional Instructions: Your x-ray is normal. Please follow-up with your primary care doctor as needed. If you develop any new or worsening symptoms seek immediate emergency treatment. Prescriptions: Naproxen 500 mg PO BID PRN #14 tablet PRN Reason: pain Referrals: [facility] [Provider Group] - 3-5 Days [facility]Provider Group] - 3-5 Days Forms: Work/School Release Form(ED)
--- NOTE | 2021-03-26 12:46 | XRay Report ---
LEFT FEMUR HISTORY: Pain, bruising. COMPARISON: None. TECHNIQUE: 2 views of the right femur were obtained. FINDINGS: Bones: No fracture or dislocation. Joint spaces: Maintained. Soft tissues: No significant abnormality. Additional findings: Moderate enthesopathy along the superior aspect of the patella. IMPRESSION: Left femur without evidence of acute osseous injury. Signer Name: Axel Salas MD Signed: 03/26/2021 12:42 PM Workstation Name: [id number]
== END 2021-03-26 14:37 | disposition home or self-care (01) ==
LOC: ED 11:16
DX: S80.12XA Contusion of left lower leg, initial encounter (principal); I10 Essential (primary) hypertension; Z91.040 Latex allergy status; Z91.018 Allergy to other foods; F10.20 Alcohol dependence, uncomplicated; X58.XXXA Exposure to other specified factors, initial encounter; Y93.89 Activity, other specified; Y92.89 Other specified places as the place of occurrence of the external cause; Y99.8 Other external cause status
CPT/HCPCS: 99283

== ENCOUNTER 2021-06-12 11:49 | Emergency (ER) | payer BC ==
[2021-06-12 16:14] VITALS: BP 157/100
[2021-06-12] MEDS ORDERED: ACETAMINOPHEN 500 MG TAB PO STA (16:33)
[2021-06-12] MEDS ORDERED: IBUPROFEN 800 MG TAB PO STA (16:33)
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
--- NOTE | 2021-06-12 17:06 | XRay Report ---
Left finger, 4 views HISTORY: Pain after injury COMPARISON: None FINDINGS: No acute fracture or malalignment. There is diffuse soft tissue swelling of the left middle finger. No soft tissue gas or radiopaque foreign body. IMPRESSION: No acute osseous findings of the left middle finger. Signer Name: Donnie Perales MD Signed: 06/12/2021 5:01 PM Workstation Name: [id number]
== END 2021-06-12 18:42 | disposition home or self-care (01) ==
LOC: ED 11:49
DX: S60.032A Contusion of left middle finger without damage to nail, initial encounter (principal); I10 Essential (primary) hypertension; Z91.040 Latex allergy status; Z91.018 Allergy to other foods; Z79.899 Other long term (current) drug therapy; X58.XXXA Exposure to other specified factors, initial encounter; Y93.89 Activity, other specified; Y92.89 Other specified places as the place of occurrence of the external cause; Y99.8 Other external cause status
CPT/HCPCS: 99283

== ENCOUNTER 2021-06-27 16:18 | Outpatient (CLI) | payer BC ==
[2021-06-27 16:41] LABS: Hematocrit 38.6 % (30.3-42.9); Hemoglobin 12.7 gm/dl (10.1-14.3); Mean Corpuscular HGB Conc 33 % (30-34); Mean Corpuscular Volume 82 fl (79-97); Platelet Count 271 K/mm3 (140-440); Red Blood Count 4.71 M/mm3 (3.65-5.03); Red Cell Distribution Width 14.5 % (13.2-15.2)
== END 2021-06-27 16:19 | disposition home or self-care (01) ==
LOC: LAB 16:18
PROVIDERS: ATTEND Obstetrics & Gynecology
DX: Z13.21 Encounter for screening for nutritional disorder (principal); Z01.419 Encounter for gynecological examination (general) (routine) without abnormal findings; Z11.3 Encounter for screening for infections with a predominantly sexual mode of transmission; N93.0 Postcoital and contact bleeding
CPT/HCPCS: 36415; 82306; 85027; 86592; 86689

== ENCOUNTER 2021-09-01 09:10 | Emergency (ER) | payer BC ==
[2021-09-01] MEDS ORDERED: DEXAMETHASONE 4 MG TAB PO ONE (11:42)
[2021-09-01] MEDS ORDERED: PENICILLIN G BENZATHINE 1.2 MILLION UNIT/2 ML INJ IM ONE (11:42)
[2021-09-01] MEDS ORDERED: KETOROLAC 10 MG TAB PO ONE (11:42)
--- NOTE | 2021-09-01 11:45 | Emergency Department Report ---
ED ENT HPI - General Chief complaint: Earache Stated complaint: EARS/NOSE THROAT PAIN Time Seen by Provider: 09/01/21 11:34 Source: patient Mode of arrival: Ambulatory Limitations: No Limitations - History of Present Illness Initial comments: 31-year-old black female with no past medical history presents to the emergency department for evaluation of 2-day history of fever, sore throat, ear pain, headache, and mild abdominal pain. She denies cough, congestion, and rhinorrhea. She states that her sister has been over to her house and was diagnosed with strep a few days ago. MD complaint: sore throat, ear pain -: Gradual, days(s) (To) Location: R ear, L ear, throat Severity: moderate Severity scale (0 -10): 6 Quality: burning, aching Consistency: constant Worsens with: swallowing Associated Symptoms: fever, pain with swallowing, sore throat. denies: cough, gum swelling, toothache, tinnitus, hearing loss, discharge from ear, rhinorrhea - Related Data Home Medications Medication Instructions Recorded Confirmed Last Taken Norethindrone [Jencycla] 0.35 mg PO DAILY 11/21/19 09/01/21 11/20/19 methOCARBAMOL [Robaxin TAB] 750 mg PO Q8H PRN 11/21/19 09/01/21 Unknown Previous Rx's Medication Instructions Recorded Last Taken Type cephALEXin [Keflex] 500 mg PO Q6HR #40 capsule 01/24/20 Unknown Rx Azithromycin [Zithromax Z-GOYO] 250 mg PO DAILY #6 tablet 04/18/20 Unknown Rx Benzonatate [Tessalon Perles] 100 mg PO Q12H PRN #12 capsule 04/18/20 Unknown Rx Baclofen [Lioresal] 10 mg PO TID #15 tab 08/28/20 Unknown Rx guaiFENesin/DEXTROMETHORPHAN 1 each PO Q6H #20 capsule 09/27/20 Unknown Rx [Coricidin Hbp Chest Edinson-Cough] Acetaminophen [Acetaminophen 8 650 mg PO Q8H PRN #12 tablet.er 11/09/20 Unknown Rx Hour] Amoxicillin [Trimox CAP] 500 mg PO Q12H #20 capsule 11/09/20 Unknown Rx Amoxicillin/K Clav Tab [Augmentin 1 tab PO Q12HR #20 tab 11/25/20 Unknown Rx 875 mg] Naproxen 500 mg PO Q12H PRN #12 tablet 11/25/20 Unknown Rx Ibuprofen [Motrin 800 MG tab] 800 mg PO TID PRN #30 tablet 01/22/21 Unknown Rx amLODIPine 5 mg PO DAILY #30 01/22/21 Unknown Rx Naproxen 500 mg PO BID PRN #14 tablet 03/26/21 Unknown Rx Ibuprofen [Motrin 800 MG tab] 800 mg PO Q8HR PRN #21 tablet 06/12/21 Unknown Rx Nystas/Diphen/Xyl Visc/Mylanta 30 ml MM Q4H PRN #240 ml 09/01/21 Unknown Rx [Magic Mouthwash] Allergies Allergy/AdvReac Type Severity Reaction Status Date / Time mushroom Allergy Hives Verified 09/01/21 09:39 latex AdvReac Rash Verified 09/01/21 09:39 ED Dental HPI - General Chief complaint: Earache Stated complaint: EARS/NOSE THROAT PAIN Time Seen by Provider: 09/01/21 11:34 Source: patient Mode of arrival: Ambulatory Limitations: No Limitations - Related Data Home Medications Medication Instructions Recorded Confirmed Last Taken Norethindrone [Jencycla] 0.35 mg PO DAILY 11/21/19 09/01/21 11/20/19 methOCARBAMOL [Robaxin TAB] 750 mg PO Q8H PRN 11/21/19 09/01/21 Unknown Previous Rx's Medication Instructions Recorded Last Taken Type cephALEXin [Keflex] 500 mg PO Q6HR #40 capsule 01/24/20 Unknown Rx Azithromycin [Zithromax Z-GOYO] 250 mg PO DAILY #6 tablet 04/18/20 Unknown Rx Benzonatate [Tessalon Perles] 100 mg PO Q12H PRN #12 capsule 04/18/20 Unknown Rx Baclofen [Lioresal] 10 mg PO TID #15 tab 08/28/20 Unknown Rx guaiFENesin/DEXTROMETHORPHAN 1 each PO Q6H #20 capsule 09/27/20 Unknown Rx [Coricidin Hbp Chest Edinson-Cough] Acetaminophen [Acetaminophen 8 650 mg PO Q8H PRN #12 tablet.er 11/09/20 Unknown Rx Hour] Amoxicillin [Trimox CAP] 500 mg PO Q12H #20 capsule 11/09/20 Unknown Rx Amoxicillin/K Clav Tab [Augmentin 1 tab PO Q12HR #20 tab 11/25/20 Unknown Rx 875 mg] Naproxen 500 mg PO Q12H PRN #12 tablet 11/25/20 Unknown Rx Ibuprofen [Motrin 800 MG tab] 800 mg PO TID PRN #30 tablet 01/22/21 Unknown Rx amLODIPine 5 mg PO DAILY #30 01/22/21 Unknown Rx Naproxen 500 mg PO BID PRN #14 tablet 03/26/21 Unknown Rx Ibuprofen [Motrin 800 MG tab] 800 mg PO Q8HR PRN #21 tablet 06/12/21 Unknown Rx Nystas/Diphen/Xyl Visc/Mylanta 30 ml MM Q4H PRN #240 ml 09/01/21 Unknown Rx [Magic Mouthwash] Allergies Allergy/AdvReac Type Severity Reaction Status Date / Time mushroom Allergy Hives Verified 09/01/21 09:39 latex AdvReac Rash Verified 09/01/21 09:39 ED Review of Systems ROS: Stated complaint: EARS/NOSE THROAT PAIN Other details as noted in HPI Comment: All other systems reviewed and negative Constitutional: fever. denies: chills Eyes: denies: eye pain, eye discharge, vision change ENT: ear pain, throat pain. denies: dental pain, hearing loss, epistaxis, congestion Respiratory: denies: cough, shortness of breath, SOB with exertion, SOB at rest Cardiovascular: denies: chest pain, palpitations, dyspnea on exertion, orthopnea, edema, syncope, paroxysmal nocturnal dyspnea Gastrointestinal: abdominal pain, nausea. denies: vomiting, diarrhea, hematemesis, melena, hematochezia Genitourinary: denies: urgency, dysuria, frequency, hematuria, discharge Musculoskeletal: denies: back pain Skin: denies: rash, lesions Neurological: denies: headache, weakness ED Past Medical Hx - Past Medical History Hx Hypertension: Yes (Past hx) Hx Liver Disease: No Hx Renal Disease: No Additional medical history: anxiety - Social History Smoking Status: Never Smoker Substance Use Type: Alcohol - Medications Home Medications: Home Medications Medication Instructions Recorded Confirmed Last Taken Type Norethindrone [Jencycla] 0.35 mg PO DAILY 11/21/19 09/01/21 11/20/19 History methOCARBAMOL [Robaxin TAB] 750 mg PO Q8H PRN 11/21/19 09/01/21 Unknown History cephALEXin [Keflex] 500 mg PO Q6HR #40 capsule 01/24/20 09/01/21 Unknown Rx Azithromycin [Zithromax Z-GOYO] 250 mg PO DAILY #6 tablet 04/18/20 09/01/21 Unknown Rx Benzonatate [Tessalon Perles] 100 mg PO Q12H PRN #12 capsule 04/18/20 09/01/21 Unknown Rx Baclofen [Lioresal] 10 mg PO TID #15 tab 08/28/20 09/01/21 Unknown Rx guaiFENesin/DEXTROMETHORPHAN 1 each PO Q6H #20 capsule 09/27/20 09/01/21 Unknown Rx [Coricidin Hbp Chest Edinson-Cough] Acetaminophen [Acetaminophen 8 650 mg PO Q8H PRN #12 tablet.er 11/09/20 09/01/21 Unknown Rx Hour] Amoxicillin [Trimox CAP] 500 mg PO Q12H #20 capsule 11/09/20 09/01/21 Unknown Rx Amoxicillin/K Clav Tab [Augmentin 1 tab PO Q12HR #20 tab 11/25/20 09/01/21 Unknown Rx 875 mg] Naproxen 500 mg PO Q12H PRN #12 tablet 11/25/20 09/01/21 Unknown Rx Ibuprofen [Motrin 800 MG tab] 800 mg PO TID PRN #30 tablet 01/22/21 09/01/21 Unknown Rx amLODIPine 5 mg PO DAILY #30 01/22/21 09/01/21 Unknown Rx Naproxen 500 mg PO BID PRN #14 tablet 03/26/21 09/01/21 Unknown Rx Ibuprofen [Motrin 800 MG tab] 800 mg PO Q8HR PRN #21 tablet 06/12/21 09/01/21 Unknown Rx Nystas/Diphen/Xyl Visc/Mylanta 30 ml MM Q4H PRN #240 ml 09/01/21 Unknown Rx [Magic Mouthwash] ED Physical Exam - General Limitations: No Limitations General appearance: alert, in no apparent distress - Head Head exam: Present: atraumatic, normocephalic - Eye Eye exam: Present: normal appearance. Absent: conjunctival injection - ENT ENT exam: Present: mucous membranes moist, TM's normal bilaterally, normal external ear exam - Expanded ENT Exam Expanded Mouth exam: Present: normal external inspection, tongue normal Throat exam: Positive: tonsillar erythema, tonsillomegaly, tonsillar exudate. Negative: R peritonsillar mass, L peritonsillar mass - Neck Neck exam: Present: normal inspection, lymphadenopathy (Anterior cervical) - Respiratory Respiratory exam: Present: normal lung sounds bilaterally. Absent: respiratory distress, wheezes, rales, rhonchi, stridor, chest wall tenderness - Cardiovascular Cardiovascular Exam: Present: regular rate, normal heart sounds - GI/Abdominal GI/Abdominal exam: Present: soft, normal bowel sounds. Absent: distended, tenderness, guarding, rebound, rigid - Extremities Exam Extremities exam: Present: normal inspection, normal capillary refill. Absent: pedal edema, joint swelling - Back Exam Back exam: Present: normal inspection. Absent: CVA tenderness (R), CVA tenderness (L) - Neurological Exam Neurological exam: Present: alert, oriented X3, normal gait - Psychiatric Psychiatric exam: Present: normal affect, normal mood - Skin Skin exam: Present: warm, dry, intact, normal color ED Course Vital Signs 09/01/21 09/01/21 09:37 12:10 Temperature 98.8 F 98.2 F Pulse Rate 86 78 Respiratory 16 16 Rate Blood Pressure 154/97 Blood Pressure 131/85 [Right] O2 Sat by Pulse 98 98 Oximetry ED Medical Decision Making - Medical Decision Making 31-year-old black female with no past medical history presents to the emergency department for evaluation of 2-day history of fever, sore throat, ear pain, headache, and mild abdominal pain. She denies cough, congestion, and rhinorrhea. She states that her sister has been over to her house and was diagnosed with strep a few days ago. Exam positive for exudate, edema, and erythema to bilateral tonsils and anterior cervical lymphadenopathy. Patient with headache, fever and mild abdominal pain. Centor score of four-point (51 to 53% probability of strep pharyngitis), so patient will be treated with one-time dose of Bicillin LA 1,200,000 units IM and one-time dose of Decadron and Toradol. She will be discharged home with Magic mouthwash to use as needed for sore throat. She is advised to take medications as prescribed and follow-up with primary care provider if no improvement or worsening symptoms. She verbalized understanding of and agreement with plan of care. Critical care attestation.: If time is entered above; I have spent that time in minutes in the direct care of this critically ill patient, excluding procedure time. ED Disposition Clinical Impression: Exudative pharyngitis Disposition: HOME / SELF CARE / HOMELESS Is pt being admited?: No Does the pt Need Aspirin: No Condition: Stable Instructions: Strep Throat, Adult, [id number] Additional Instructions: Take medications as prescribed. Follow-up with primary care provider if no improvement or worsening symptoms. Prescriptions: Nystas/Diphen/Xyl Visc/Mylanta [Magic Mouthwash] 30 ml MM Q4H PRN #240 ml PRN Reason: Sore Throat Referrals: TIFFANY SINCLAIR MD [Referring] - 3-5 Days Forms: Work/School Release Form(ED) Time of Disposition: 11:45
[2021-09-01 12:12] VITALS: BP 131/85
== END 2021-09-01 12:12 | disposition home or self-care (01) ==
LOC: ED 09:10
DX: J02.8 Acute pharyngitis due to other specified organisms (principal); Z91.040 Latex allergy status; I10 Essential (primary) hypertension; F10.20 Alcohol dependence, uncomplicated
CPT/HCPCS: 96372; 99282; J0561; J8540

== ENCOUNTER 2021-10-23 06:54 | Emergency (ER) | payer BC ==
[2021-10-23 07:41] VITALS: BP 190/118
--- NOTE | 2021-10-23 09:21 | Emergency Department Report ---
Minor Respiratory - HPI Chief Complaint: Sore Throat Stated Complaint: EARACHE/THROAT PAIN Time Seen by Provider: 10/23/21 08:35 Duration: 3 Days Pain Location: Throat, Ear Severity: mild Minor Respiratory: Yes Sore Throat, Yes Able to Tolerate Fluids, Yes Ear Pain, No Rhinorrhea, No Cough, No Sick Contacts, No Hemoptysis, No Chest Pain, No Shortness of Breath, No Fever Other History: Ms. Santana is a pleasant 31-year-old that comes to the ER with sore throat and right ear pain. No fever or chills. No shortness of breath or chest pain. Patient does have a history of hypertension. Blood pressure noted to be elevated on admission. Not currently on medications. ED Review of Systems ROS: Stated complaint: EARACHE/THROAT PAIN Other details as noted in HPI Comment: All other systems reviewed and negative ED Past Medical Hx - Past Medical History Previous Medical History?: Yes Hx Hypertension: Yes (Past hx) Hx Liver Disease: No Hx Renal Disease: No Additional medical history: anxiety - Surgical History Past Surgical History?: No - Family History Family history: no significant - Social History Smoking Status: Never Smoker Substance Use Type: Alcohol - Medications Home Medications: Home Medications Medication Instructions Recorded Confirmed Last Taken Type Norethindrone [Jencycla] 0.35 mg PO DAILY 11/21/19 09/01/21 11/20/19 History methOCARBAMOL [Robaxin TAB] 750 mg PO Q8H PRN 11/21/19 09/01/21 Unknown History Baclofen [Lioresal] 10 mg PO TID #15 tab 08/28/20 09/01/21 Unknown Rx amLODIPine 5 mg PO DAILY #30 01/22/21 09/01/21 Unknown Rx Nystas/Diphen/Xyl Visc/Mylanta 30 ml MM Q4H PRN #240 ml 09/01/21 Unknown Rx [Magic Mouthwash] Amoxicillin [Trimox CAP] 500 mg PO BID #20 capsule 10/23/21 Unknown Rx Minor Respiratory Exam - Exam General: Vital signs noted. No distress. Alert and acting appropriately. HEENT: Yes Pharyngeal Erythema, Yes Pharyngeal Exudates, Yes Moist Mucous Membranes, No Rhinorrhea, No Conjuctival Injection, No Frontal Tenderness, No Maxillary Tenderness Ear: Right TM Erythema, Neither TM Bulge, Neither EAC Pain, Neither EAC Discharge Neck: Yes Supple, No Adenopathy Lungs: Yes Good Air Exchange, No Wheezes, No Ronchi, No Stridor, No Cough, No Labored Respirations, No Retractions, No Use of Accessory Muscles, No Other Abnormal Lung Sounds Heart: Yes Regular, No Murmur Abdomen: Yes Normal Bowel Sounds, No Tenderness, No Peritoneal Signs Skin: No Rash, No Edema Neurologic: Alert and oriented, no deficits. Musculoskeletal: Unremarkable. ED Course Vital Signs 10/23/21 07:37 Temperature 98.7 F Pulse Rate 100 H Respiratory 16 Rate Blood Pressure 190/118 [Left] O2 Sat by Pulse 100 Oximetry ED Medical Decision Making - Medical Decision Making Simple URI. Patient is ABCs intact. Taking p.o. Normal vital signs with the exception of her elevated blood pressure. Has acute on chronic hypertension. Currently off medications. She denies chest pain or shortness of breath. I explained the importance of follow-up with her PCP to make sure this is not a ongoing issue for her. She verbalizes understanding Vital Signs 10/23/21 07:37 Temperature 98.7 F Pulse Rate 100 H Respiratory 16 Rate Blood Pressure 190/118 [Left] O2 Sat by Pulse 100 Oximetry Patient being discharged home with discharge plan of care including diet, activities, medications and follow-up. Patient verbalizes understanding of plan of care - Differential Diagnosis URI Critical care attestation.: If time is entered above; I have spent that time in minutes in the direct care of this critically ill patient, excluding procedure time. ED Disposition Clinical Impression: URI (upper respiratory infection), Pharyngitis, Otitis media, Elevated blood pressure reading Disposition: HOME / SELF CARE / HOMELESS Is pt being admited?: No Does the pt Need Aspirin: No Condition: Stable Instructions: Sore Throat, [id number] Additional Instructions: Diet and activity as tolerated Follow-up with PCP next week to make sure you are feeling better I have given you referral below for primary care. Antibiotics as ordered today Stay well-hydrated with water Motrin or Tylenol for pain Monitor your blood pressure, it was elevated today. I see you have a history of hypertension. See PCP to make sure this resolves. Prescriptions: Amoxicillin [Trimox CAP] 500 mg PO BID #20 capsule Referrals: LUIS BILLINGS MD [Primary Care Provider] - 3-5 Days Forms: Work/School Release Form(ED) Time of Disposition: 09:19
== END 2021-10-23 10:13 | disposition home or self-care (01) ==
LOC: ED 06:54
DX: J02.9 Acute pharyngitis, unspecified (principal); H66.91 Otitis media, unspecified, right ear; I10 Essential (primary) hypertension
CPT/HCPCS: 99282

== ENCOUNTER 2021-11-14 13:36 | Emergency (ER) | payer BC ==
[2021-11-14 14:01] VITALS: BP 145/90
--- NOTE | 2021-11-14 14:15 | Emergency Department Report ---
ED General Adult HPI - General Chief complaint: Eye Problems Stated complaint: PINK EYE Time Seen by Provider: 11/14/21 14:11 Source: patient Mode of arrival: Ambulatory Limitations: No Limitations - History of Present Illness Initial comments: pt presents to ed with complaint of eye irritation -: Gradual, days(s) Location: eyes Radiation: non-radiation - Related Data Home Medications Medication Instructions Recorded Confirmed Last Taken Norethindrone [Jencycla] 0.35 mg PO DAILY 11/21/19 09/01/21 11/20/19 methOCARBAMOL [Robaxin TAB] 750 mg PO Q8H PRN 11/21/19 09/01/21 Unknown Previous Rx's Medication Instructions Recorded Last Taken Type Baclofen [Lioresal] 10 mg PO TID #15 tab 08/28/20 Unknown Rx amLODIPine 5 mg PO DAILY #30 01/22/21 Unknown Rx Nystas/Diphen/Xyl Visc/Mylanta 30 ml MM Q4H PRN #240 ml 09/01/21 Unknown Rx [Magic Mouthwash] Amoxicillin [Trimox CAP] 500 mg PO BID #20 capsule 10/23/21 Unknown Rx Allergies Allergy/AdvReac Type Severity Reaction Status Date / Time mushroom Allergy Hives Verified 09/01/21 09:39 latex AdvReac Rash Verified 09/01/21 09:39 ED Review of Systems ROS: Stated complaint: PINK EYE Other details as noted in HPI Constitutional: denies: chills, fever Eyes: denies: eye pain, eye discharge, vision change ENT: denies: ear pain, throat pain Respiratory: denies: cough, shortness of breath, wheezing Cardiovascular: denies: chest pain, palpitations Endocrine: no symptoms reported Gastrointestinal: denies: abdominal pain, nausea, diarrhea Genitourinary: denies: urgency, dysuria, discharge Musculoskeletal: denies: back pain, joint swelling, arthralgia Skin: denies: rash, lesions Neurological: denies: headache, weakness, paresthesias Psychiatric: denies: anxiety, depression Hematological/Lymphatic: denies: easy bleeding, easy bruising ED Past Medical Hx - Past Medical History Hx Hypertension: Yes (Past hx) Hx Liver Disease: No Hx Renal Disease: No Additional medical history: anxiety - Social History Smoking Status: Never Smoker Substance Use Type: Alcohol - Medications Home Medications: Home Medications Medication Instructions Recorded Confirmed Last Taken Type Norethindrone [Jencycla] 0.35 mg PO DAILY 11/21/19 09/01/21 11/20/19 History methOCARBAMOL [Robaxin TAB] 750 mg PO Q8H PRN 11/21/19 09/01/21 Unknown History Baclofen [Lioresal] 10 mg PO TID #15 tab 08/28/20 09/01/21 Unknown Rx amLODIPine 5 mg PO DAILY #30 01/22/21 09/01/21 Unknown Rx Nystas/Diphen/Xyl Visc/Mylanta 30 ml MM Q4H PRN #240 ml 09/01/21 Unknown Rx [Magic Mouthwash] Amoxicillin [Trimox CAP] 500 mg PO BID #20 capsule 10/23/21 Unknown Rx ED Physical Exam - General Limitations: No Limitations General appearance: alert, in no apparent distress - Head Head exam: Present: atraumatic, normocephalic - Eye Eye exam: Present: normal appearance, conjunctival injection - ENT ENT exam: Present: mucous membranes moist - Neck Neck exam: Present: normal inspection - Respiratory Respiratory exam: Present: normal lung sounds bilaterally. Absent: respiratory distress - Cardiovascular Cardiovascular Exam: Present: regular rate, normal rhythm. Absent: systolic murmur, diastolic murmur, rubs, gallop - GI/Abdominal GI/Abdominal exam: Present: soft, normal bowel sounds - Extremities Exam Extremities exam: Present: normal inspection - Back Exam Back exam: Present: normal inspection - Neurological Exam Neurological exam: Present: alert, oriented X3 - Psychiatric Psychiatric exam: Present: normal affect, normal mood - Skin Skin exam: Present: warm, dry, intact, normal color. Absent: rash ED Course Vital Signs 11/14/21 13:57 Temperature 98.2 F Pulse Rate 92 H Respiratory 16 Rate Blood Pressure 145/90 [Left] O2 Sat by Pulse 98 Oximetry Critical care attestation.: If time is entered above; I have spent that time in minutes in the direct care of this critically ill patient, excluding procedure time. ED Disposition Clinical Impression: Conjunctivitis Disposition: HOME / SELF CARE / HOMELESS Is pt being admited?: No Does the pt Need Aspirin: No Condition: Stable
[2021-11-14] MEDS ORDERED: GENTAMICIN 0.3% OPHTH SOLN 5 ML OU SCH (18:00)
[2021-11-14] MEDS ORDERED: GENTAMICIN 0.3% OPHTH OINT 3.5 GM OS SCH (22:00)
== END 2021-11-14 14:30 | disposition home or self-care (01) ==
LOC: ED 13:36
DX: H10.9 Unspecified conjunctivitis (principal); F10.20 Alcohol dependence, uncomplicated; I10 Essential (primary) hypertension; Z91.040 Latex allergy status; Z91.018 Allergy to other foods
CPT/HCPCS: 99282

== ENCOUNTER 2022-01-06 08:09 | Emergency (ER) | payer BC ==
[2022-01-06] MEDS ORDERED: ASPIRIN 325 MG TAB PO ONE (11:46)
--- NOTE | 2022-01-06 12:33 | XRay Report ---
CHEST 1 VIEW 01/06/2022 11:16 AM INDICATION / CLINICAL INFORMATION: Chest pain and shortness of breath for 2 days. COMPARISON: 2 views of the chest from 01/22/2021. FINDINGS: SUPPORT DEVICES: None. HEART / MEDIASTINUM: The cardiac silhouette is mildly enlarged. No other significant abnormality. LUNGS / PLEURA: No significant pulmonary abnormality. No significant pleural effusion. No pneumothora x. ADDITIONAL FINDINGS: No significant additional findings. IMPRESSION: Mild cardiomegaly without other acute findings. Signer Name: Delonte Sanchez MD Signed: 01/06/2022 12:28 PM Workstation Name: [id number]
[2022-01-06 12:37] LABS: Alanine Aminotransferase 13 units/L (7-56); Albumin 4.3 g/dL (3.9-5); Blood Urea Nitrogen 6 mg/dL (7-17); Calcium 8.8 mg/dL (8.4-10.2); Hemolysis Index 11
[2022-01-06 12:48] LABS: BUN/Creatinine Ratio 10
--- NOTE | 2022-01-06 12:56 | Emergency Department Report ---
ED Chest Pain HPI - General Chief Complaint: Chest Pain Stated Complaint: CHEST PAIN Time Seen by Provider: 01/06/22 12:08 Source: patient Mode of arrival: Ambulatory Limitations: No Limitations - History of Present Illness Initial Comments: This is a 31-year-old female with history of hypertension who presents to the emergency department complaining of chest pain since last night which has been getting worse. Endorses that this pain is pressure-like, intermittent, and severe at times. The pain is now mild. Patient reports associated nausea (whi ch has been going on for 2 days), and shortness of breath. Patient also reported generalized weakness, last night. Patient denies headache. Denies lower extremity pain or swelling. Patient denies previous similar. Denies any known alleviating or aggravating factors. Patient states that she has not been taking amlodipine in over a year. Severity scale (0 -10): 5 - Related Data Home Medications Medication Instructions Recorded Confirmed Last Taken Norethindrone [Jencycla] 0.35 mg PO DAILY 11/21/19 09/01/21 11/20/19 methOCARBAMOL [Robaxin TAB] 750 mg PO Q8H PRN 11/21/19 09/01/21 Unknown Previous Rx's Medication Instructions Recorded Last Taken Type Baclofen [Lioresal] 10 mg PO TID #15 tab 08/28/20 Unknown Rx Nystas/Diphen/Xyl Visc/Mylanta 30 ml MM Q4H PRN #240 ml 09/01/21 Unknown Rx [Magic Mouthwash] Amoxicillin [Trimox CAP] 500 mg PO BID #20 capsule 10/23/21 Unknown Rx Ciprofloxacin HCl [Ciloxan] 5 ml OP QID #1 drops 11/14/21 Unknown Rx Gentamicin 0.3% Ophth Oint 1 applicatio OP Q4H #1 tube 11/14/21 Unknown Rx amLODIPine 5 mg PO DAILY #30 01/06/22 Unknown Rx diazePAM TAB [Valium] 5 mg PO TID PRN #6 tablet 01/06/22 Unknown Rx Allergies Allergy/AdvReac Type Severity Reaction Status Date / Time mushroom Allergy Hives Verified 01/06/22 08:33 latex AdvReac Rash Verified 01/06/22 08:33 Heart Score - HEART Score History: Slightly suspicious EKG: Normal Age: < 45 Risk factors: 1-2 risk factors Troponin: < normal limit HEART Score: 1 - EKG Read Time Time EKG Completed: 08:40 EKG Read Time: 08:45 - Critical Actions Critical Actions: 0-3 pts:0.9-1.7%risk of adverse cardiac event.Candidate for discharge ED Review of Systems ROS: Stated complaint: CHEST PAIN Other details as noted in HPI Comment: All other systems reviewed and negative Constitutional: weakness. denies: chills, fever Eyes: denies: eye pain, eye discharge, vision change ENT: denies: ear pain, throat pain Respiratory: shortness of breath. denies: cough, wheezing Cardiovascular: chest pain. denies: palpitations, dyspnea on exertion, edema, syncope, paroxysmal nocturnal dyspnea Endocrine: no symptoms reported Gastrointestinal: denies: abdominal pain, nausea, diarrhea Genitourinary: denies: urgency, dysuria, discharge Musculoskeletal: denies: back pain, joint swelling, arthralgia Skin: denies: rash, lesions Neurological: denies: headache, weakness, paresthesias Psychiatric: denies: anxiety, depression Hematological/Lymphatic: denies: easy bleeding, easy bruising ED Past Medical Hx - Past Medical History Hx Hypertension: Yes (taken off bp meds 2019) Hx Liver Disease: No Hx Renal Disease: No Additional medical history: anxiety - Social History Smoking Status: Never Smoker - Medications Home Medications: Home Medications Medication Instructions Recorded Confirmed Last Taken Type Norethindrone [Jencycla] 0.35 mg PO DAILY 11/21/19 09/01/21 11/20/19 History methOCARBAMOL [Robaxin TAB] 750 mg PO Q8H PRN 11/21/19 09/01/21 Unknown History Baclofen [Lioresal] 10 mg PO TID #15 tab 08/28/20 09/01/21 Unknown Rx Nystas/Diphen/Xyl Visc/Mylanta 30 ml MM Q4H PRN #240 ml 09/01/21 Unknown Rx [Magic Mouthwash] Amoxicillin [Trimox CAP] 500 mg PO BID #20 capsule 10/23/21 Unknown Rx Ciprofloxacin HCl [Ciloxan] 5 ml OP QID #1 drops 11/14/21 Unknown Rx Gentamicin 0.3% Ophth Oint 1 applicatio OP Q4H #1 tube 11/14/21 Unknown Rx amLODIPine 5 mg PO DAILY #30 01/06/22 Unknown Rx diazePAM TAB [Valium] 5 mg PO TID PRN #6 tablet 01/06/22 Unknown Rx ED Physical Exam - General Limitations: No Limitations General appearance: alert, in no apparent distress - Head Head exam: Present: atraumatic, normocephalic - Eye Eye exam: Present: normal appearance, PERRL, EOMI - ENT ENT exam: Present: mucous membranes moist - Neck Neck exam: Present: normal inspection - Respiratory Respiratory exam: Present: normal lung sounds bilaterally, chest wall tenderness. Absent: respiratory distress - Cardiovascular Cardiovascular Exam: Present: regular rate, normal rhythm, normal heart sounds. Absent: systolic murmur, diastolic murmur, rubs, gallop - GI/Abdominal GI/Abdominal exam: Present: soft, normal bowel sounds. Absent: distended, tenderness - Extremities Exam Extremities exam: Present: normal inspection, full ROM. Absent: tenderness, joint swelling, calf tenderness - Back Exam Back exam: Present: normal inspection - Neurological Exam Neurological exam: Present: alert, oriented X3 - Psychiatric Psychiatric exam: Present: normal affect, normal mood - Skin Skin exam: Present: warm, dry, intact, normal color. Absent: rash ED Course Vital Signs 01/06/22 01/06/22 01/06/22 08:30 11:35 11:41 Temperature 99 F Pulse Rate 90 85 88 Respiratory 18 15 Rate Blood Pressure Blood Pressure 167/111 [Left] O2 Sat by Pulse 97 98 98 Oximetry 01/06/22 01/06/22 01/06/22 11:45 12:00 12:15 Temperature Pulse Rate 84 86 84 Respiratory 16 23 11 L Rate Blood Pressure 179/107 160/98 170/100 Blood Pressure 179/101 [Left] O2 Sat by Pulse 98 95 Oximetry 01/06/22 01/06/22 01/06/22 12:30 12:45 13:01 Temperature Pulse Rate 81 84 82 Respiratory 16 15 20 Rate Blood Pressure 172/99 173/107 173/107 Blood Pressure [Left] O2 Sat by Pulse 96 97 98 Oximetry 01/06/22 01/06/22 01/06/22 13:15 13:30 14:40 Temperature Pulse Rate 82 79 89 Respiratory 27 H 24 Rate Blood Pressure 161/94 144/89 161/94 Blood Pressure [Left] O2 Sat by Pulse 99 95 Oximetry - Reevaluation(s) Reevaluation #1: 01/06/22 14:40 Patient reevaluated, and still feels improvement of her symptoms. Patient does report that she has been having a lot of stress due to family . Patient has agreed to restart her amlodipine. Currently awaiting CT angio of the chest. If that is normal, patient will be sent home. KERMIT score - Kermit Score Age > 65: (0) No Aspirin use within the Past 7 Days: (0) No 3 or more CAD Risk Factors: (0) No 2 or more Angina events in past 24 hrs: (0) No Known CAD with more than 50% Stenosis: (0) No Elevated Cardiac Markers: (0) No ST Deviation Greater than 0.5mm: (0) No KERMIT Score: 0 ED Medical Decision Making - Lab Data Result diagrams: 01/06/22 11:46 - EKG Data -: EKG Interpreted by Me EKG shows normal: sinus rhythm Rate: normal - EKG Data Interpretation: no acute changes, normal EKG - Differential Diagnosis ACS, anxiety, pulmonary embolism, costochondritis, pneumonia. Significant Critical care attestation.: If time is entered above; I have spent that time in minutes in the direct care of this critically ill patient, excluding procedure time. ED Disposition Clinical Impression: Chest pain Qualifiers: Chest pain type: other chest pain Qualified Code(s): R07.89 - Other chest pain; R07.8 - Other chest pain Disposition: 01 HOME / SELF CARE / HOMELESS Is pt being admited?: No Does the pt Need Aspirin: No Condition: Stable Instructions: Nonspecific Chest Pain, Adult Prescriptions: amLODIPine 5 mg PO DAILY #30 diazePAM TAB [Valium] 5 mg PO TID PRN #6 tablet PRN Reason: Anxiety Referrals: LUIS BILLINGS MD [Primary Care Provider] - 3-5 Days Time of Disposition: 15:26
[2022-01-06] MEDS ORDERED: amLODIPine 5 MG TAB PO ONE (14:20)
--- NOTE | 2022-01-06 14:47 | Cat Scan Report ---
CTA CHEST WITH CONTRAST INDICATION / CLINICAL INFORMATION: r/o pe. Chest pain TECHNIQUE: Axial CT images were obtained through the chest after injection of 100 cc of Omnipaque 350 IV contrast. 3 plane MIP and/or 3D reconstructions were produced. All CT scans at this location are performed using CT dose reduction for ALARA by means of automated exposure control. COMPARISON: None available. FINDINGS: PULMONARY EMBOLUS: None. THORACIC AORTA: No significant abnormality. HEART: No significant abnormality. CORONARY ARTERY CALCIFICATION: Absent -- None. MEDIASTINUM / MILEY: No significant abnormality. PLEURA: No pleural effusion. No pneumothorax. LUNGS: No acute air space or interstitial disease. ADDITIONAL FINDINGS: None. UPPER ABDOMEN: No acute findings. SKELETAL STRUCTURES: No significant osseous abnormality. IMPRESSION: 1. No CT evidence for pulmonary embolism. 2. No acute findings. Signer Name: Aaron House Jr, MD Signed: 01/06/2022 2:43 PM Workstation Name: [id number]
[2022-01-06 16:17] VITALS: BP 134/81
--- NOTE | 2022-01-08 10:48 | Electrocardiograph Report ---
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
== END 2022-01-06 16:15 | disposition home or self-care (01) ==
LOC: ED 08:09
DX: R07.89 Other chest pain (principal); I10 Essential (primary) hypertension; F41.9 Anxiety disorder, unspecified; Z91.040 Latex allergy status; Z91.018 Allergy to other foods; Z79.899 Other long term (current) drug therapy
CPT/HCPCS: 71045; 71275; 80053; 84484; 93005; 99284; Q9967